=== PATIENT | female | born 1960 | race Caucasian/White ===

== ENCOUNTER 2020-02-17 10:44 | Outpatient (REF) | payer MEDICAID, SELFPAY | END 2020-02-17 10:45 | disposition home or self-care (01) | LOC: HO.LAB 10:44 | PROVIDERS: PCP Internal Medicine; Visit Provider Urology | DX: R30.0 Dysuria (principal) | CPT/HCPCS: 87086; 87088; 87186 ==

== ENCOUNTER 2020-08-03 12:06 | Outpatient (REF) | payer MEDICAID, SELFPAY ==
--- NOTE | ~2020-08-03 | MM_ITS ---
EXAMINATION: MM SCREENING DIGITAL BREAST TOMOSYNTHESIS, BILATERAL CLINICAL INFORMATION: Screening. Asymptomatic. The lifetime risk of breast cancer based on the Tyrer-Cuzick Model is 7.1%. COMPARISON: Mammography: May 18, 2019 and studies dating back to February 23, 2010 TECHNIQUE: Digital breast tomosynthesis is performed in both the craniocaudal and mediolateral oblique views along with computer-aided detection (CAD). Synthesized 2D images are generated from the tomosynthesis. FINDINGS: The breasts are heterogeneously dense, which may obscure small masses (ACR BI-RADS breast composition Category c). There are no significant masses, abnormal calcifications, or other abnormalities. MM/MM tomosynthesis screening BI IMPRESSION: There are no significant changes from prior study. ASSESSMENT: BI-RADS 1: Negative RECOMMENDATION: Routine annual mammography screening. This patient's information was entered into a reminder system with a target due date for their next mammogram.
== END 2020-08-03 12:07 | disposition home or self-care (01) ==
LOC: HO.MAMMO 12:06
PROVIDERS: Visit Provider Internal Medicine
DX: Z12.31 Encounter for screening mammogram for malignant neoplasm of breast (principal)
CPT/HCPCS: 77063; 77067

== ENCOUNTER 2021-08-04 12:20 | Outpatient (REF) | payer MEDICAID, SELFPAY ==
--- NOTE | ~2021-08-04 | MM_ITS ---
EXAMINATION: MM SCREENING DIGITAL BREAST TOMOSYNTHESIS, BILATERAL CLINICAL INFORMATION: Screening. Asymptomatic. The lifetime risk of breast cancer based on the Tyrer-Cuzick Model is 5%. COMPARISON: Mammography: 08/03/2020, 05/18/2019, 04/14/2018 TECHNIQUE: Digital breast tomosynthesis is performed in both the craniocaudal and mediolateral oblique views along with computer-aided detection (CAD). Synthesized 2D images are generated from the tomosynthesis. FINDINGS: The breasts are heterogeneously dense, which may obscure small masses (ACR BI-RADS breast composition Category c). There are no significant masses, abnormal calcifications, or other abnormalities. Parenchymal pattern is similar to prior studies. The axilla and skin contours are unremarkable. MM/MM tomosynthesis screening BI IMPRESSION: No mammographic evidence of malignancy. ASSESSMENT: BI-RADS 1: Negative RECOMMENDATION: Routine annual mammography screening. This patient's information was entered into a reminder system with a target due date for their next mammogram.
== END 2021-08-04 12:21 | disposition home or self-care (01) ==
LOC: HO.MAMMO 12:20
PROVIDERS: Visit Provider Internal Medicine
DX: Z12.31 Encounter for screening mammogram for malignant neoplasm of breast (principal)
CPT/HCPCS: 77063; 77067

== ENCOUNTER 2022-08-10 12:21 | Outpatient (REF) | payer OTHER, SELFPAY ==
--- NOTE | ~2022-08-10 | MM_ITS ---
EXAMINATION: MM SCREENING DIGITAL BREAST TOMOSYNTHESIS, BILATERAL CLINICAL INFORMATION: Screening. Asymptomatic. The lifetime risk of breast cancer based on the Tyrer-Cuzick Model is 5%. COMPARISON: Multiple prior mammography exams, most recent 08/04/2021. TECHNIQUE: Digital breast tomosynthesis is performed in both the craniocaudal and mediolateral oblique views along with computer-aided detection (CAD). Synthesized 2D images are generated from the tomosynthesis. FINDINGS: The breasts are heterogeneously dense, which may obscure small masses (ACR BI-RADS breast composition Category c). Right breast parenchymal pattern is similar to prior studies and there is no developing density or interval mass or architectural abnormality. Neither breast shows abnormal calcifications. The axilla and skin contours are unremarkable. There is oval parenchymal asymmetry mid outer left breast on CC view, more conspicuous on current study. Patient will be recalled for additional imaging. MM/MM tomosynthesis screening BI IMPRESSION: Left: -Asymmetric density mid outer left breast, possibly waxing and waning fibrocystic change or shifting fibroglandular tissue. Right: -No mammographic evidence of malignancy. ASSESSMENT: BI-RADS 0: Incomplete - Need Additional Imaging Evaluation RECOMMENDATION: 1. Additional views left breast (spot CC, rolled CC x 2). 2. Targeted ultrasound if warranted after review of the additional views. 3. Radiology department staff will contact the patient for additional imaging. This patient's information was entered into a reminder system with a target due date for their next mammogram.
== END 2022-08-10 12:22 | disposition home or self-care (01) ==
LOC: HO.MAMMO 12:21
PROVIDERS: Visit Provider Nurse Practitioner Gerontology
DX: Z12.31 Encounter for screening mammogram for malignant neoplasm of breast (principal)
CPT/HCPCS: 77063; 77067

== ENCOUNTER 2022-09-07 13:28 | Outpatient (REF) | payer OTHER, SELFPAY ==
--- NOTE | ~2022-09-07 | MM_ITS ---
EXAMINATION: MM DIAGNOSTIC DIGITAL BREAST TOMOSYNTHESIS, LEFT TARGETED LEFT BREAST ULTRASOUND CLINICAL INFORMATION: Left breast lateral asymmetric density. COMPARISON: Mammography: 08/10/2022 and studies dating back to 11/14/2015. TECHNIQUE: Digital breast tomosynthesis is performed. 2D images are generated from the tomosynthesis. The following views are obtained: Rolled craniocaudal views as well as spot compression craniocaudal view left breast. FINDINGS: The breasts are heterogeneously dense, which may obscure small masses (ACR BI-RADS breast composition Category c). There remains some dense breast tissue present with question of 2 circumscribed densities lateral aspect of the left breast. I do not see definite correlates on mediolateral oblique views. These densities may have been present on study of 04/14/2018 but I cannot definitely say that more recent studies show these. Targeted left breast ultrasound laterally did not demonstrate any abnormal cystic or solid masses. No region of abnormal distal sound shadowing was appreciated. Results are discussed with the patient at time of visit. MM/MM tomosynthesis added views L IMPRESSION: Dense breast parenchyma lateral aspect of the left breast for which 6 month follow-up mammogram is recommended. ASSESSMENT: BI-RADS 3: Probably Benign. RECOMMENDATION: Diagnostic mammography in 6 months. This patient's information was entered into a reminder system with a target due date for their next mammogram.
== END 2022-09-07 13:29 | disposition home or self-care (01) ==
LOC: HO.MAMMO 13:28
PROVIDERS: Visit Provider Nurse Practitioner Gerontology
DX: R92.8 Other abnormal and inconclusive findings on diagnostic imaging of breast (principal)
CPT/HCPCS: 76642; 77061; 77065

== ENCOUNTER 2022-09-14 08:28 | Outpatient (REF) | payer OTHER, SELFPAY ==
[2022-09-14 09:27] LABS: Alanine Aminotransferase 32 U/L (0-31); Albumin Level 4.3 g/dL (3.5-5.0); Alkaline Phosphatase 132 U/L (39-117); Anion Gap 14 (12-20); Aspartate Amino Transferase 30 U/L (5-31); Bilirubin Total 0.6 mg/dL (0.0-1.0); Blood Urea Nitrogen 14 mg/dL (9-16); Calcium 9.9 mg/dL (8.4-10.2); Carbon Dioxide 28 mmol/L (22-29); Chloride 104 mmol/L (96-108); Cholesterol 171 mg/dL; Estimated Glomerular Filt Rate > 60; Glucose Random 194 mg/dL (60-115); HDL Cholesterol 49 mg/dL; LDL Cholesterol Calculated 104 mg/dl; Potassium 4.7 mmol/L (3.3-5.1); Sodium 141 mmol/L (135-145); Total Protein 7.6 g/dL (6.5-8.0); Triglycerides 94 mg/dL
[2022-09-14 11:16] LABS: Appearance Urine Turbid; Color Urine Yellow; Glucose Urine UA Negative (Negative); Leukocyte Esterase Urine Moderate (2+) (Negative); Nitrite Urine Negative (Negative); PH 5.5 (5.0-9.0); UMIC TRIGGER UACC YES; Urine Blood Negative (Negative); Urine Ketones Negative (Negative); Urine Protein Negative (Neg-Trace)
[2022-09-14 11:22] LABS: Creatinine Urine 132.58 mg/dL; Microalbum/Creatinine Ratio Ur 27.9 ug/mg cr
[2022-09-14 11:23] LABS: Bacteria Urine Trace (None Seen); Hyaline Casts Urine 0-2 /LPF (0-2); RBC Urine 0-2 /HPF (0-2); UACC Culture Trigger YES
== END 2022-09-14 08:29 | disposition home or self-care (01) ==
LOC: HO.LAB 08:28
PROVIDERS: PCP Nurse Practitioner Gerontology; Visit Provider Nurse Practitioner Gerontology
DX: K76.0 Fatty (change of) liver, not elsewhere classified (principal); E11.9 Type 2 diabetes mellitus without complications
CPT/HCPCS: 36415; 80053; 80061; 81001; 81003; 82043; 87086

== ENCOUNTER 2023-03-01 13:51 | Outpatient (REF) | payer OTHER, SELFPAY ==
--- NOTE | ~2023-03-01 | MM_ITS ---
EXAMINATION: MM DIAGNOSTIC DIGITAL BREAST TOMOSYNTHESIS, LEFT CLINICAL INFORMATION: Follow-up one view asymmetry the lateral left breast seen on CC view only, with no MLO correlate. Also, no ultrasonographic correlate. COMPARISON: Mammography: 09/07/2022 mammogram and ultrasound. Mammography 08/10/2022, 08/04/2021, 08/03/2020, and dating back to 2018. TECHNIQUE: Digital left breast tomosynthesis is performed in both the craniocaudal and mediolateral oblique views along with computer-aided detection (CAD). Synthesized 2D images are generated from the tomosynthesis. FINDINGS: There are scattered areas of fibroglandular density (ACR BI-RADS breast composition Category b). The parenchymal pattern of the left breast as a stable asymmetry in the lateral aspect, which in retrospect is unchanged dating back to 2018. It is most certainly benign and is unchanged on today's examination. No correlate is evident on the MLO projection. Otherwise, there are are no suspicious masses, suspicious grouped calcifications, or areas of architectural distortion in either breast. The parenchymal pattern is stable from prior exams. MM/MM tomosynthesis diagnostic LT IMPRESSION: There are no significant changes from prior study. Recommend six-month interval follow-up diagnostic left mammography when the patient is due for bilateral screening. If stable at that time, no further follow-up recommended. ASSESSMENT: BI-RADS BI-RADS 3 - Probably benign finding(s) - 6 month follow-up suggested RECOMMENDATION: 6 Month F/U Results were provided to the patient at time of visit by the technologist. This patient's information was entered into a reminder system with a target due date for their next mammogram.
== END 2023-03-01 13:52 | disposition home or self-care (01) ==
LOC: HO.MAMMO 13:51
PROVIDERS: PCP Nurse Practitioner Gerontology; Visit Provider Nurse Practitioner Gerontology
DX: R92.8 Other abnormal and inconclusive findings on diagnostic imaging of breast (principal)
CPT/HCPCS: 77061; 77065

== ENCOUNTER → 2023-03-01 14:00 | Outpatient (BNV) | payer OTHER, SELFPAY | PROVIDERS: PCP Nurse Practitioner Gerontology; Visit Provider Radiology Diagnostic Radiology | DX: R92.322 Mammographic fibroglandular density, left breast (principal) | CPT/HCPCS: 77061; 77065 ==

== ENCOUNTER 2023-08-30 14:45 | Outpatient (REF) | payer OTHER, SELFPAY ==
--- NOTE | ~2023-08-30 | MM_ITS ---
EXAMINATION: MM DIAGNOSTIC DIGITAL BREAST TOMOSYNTHESIS, BILATERAL CLINICAL INFORMATION: Follow-up one view asymmetry the lateral left breast seen on CC view only, with no MLO correlate. Also, no ultrasonographic correlate. Bilateral screening. COMPARISON: Mammography: 09/07/2022 mammogram and ultrasound. Mammography 03/01/2023, 08/10/2022, 08/04/2021, 08/03/2020, and dating back to 2018. TECHNIQUE: Digital breast tomosynthesis is performed in both the craniocaudal and mediolateral oblique views along with computer-aided detection (CAD). Synthesized 2D images are generated from the tomosynthesis. In addition, full-field 3-D left mediolateral view was obtained. FINDINGS: The breasts are heterogeneously dense, which may obscure small masses (ACR BI-RADS breast composition Category c). The parenchymal pattern of the left breast has a stable asymmetry in the lateral aspect, which in retrospect is unchanged dating back to 2018. It is most certainly benign and is unchanged on today's examination. No correlate is evident on the MLO projection. No further follow-up recommended. Otherwise, there are are no suspicious masses, suspicious grouped calcifications, or areas of architectural distortion in either breast. The parenchymal pattern is stable from prior exams. MM/MM tomosynthesis diagnostic BI IMPRESSION: No findings in either breast suspicious for malignancy. Benign asymmetry left CC projection requires no further follow-up. Recommend the patient return to routine annual screening. ASSESSMENT: BI-RADS BI-RADS 2 - Benign Findings RECOMMENDATION: 1 year F/U Results were provided to the patient at time of visit by the technologist. This patient's information was entered into a reminder system with a target due date for their next mammogram.
== END 2023-08-30 14:46 | disposition home or self-care (01) ==
LOC: HO.MAMMO 14:45
PROVIDERS: PCP Nurse Practitioner Gerontology; Visit Provider Nurse Practitioner Gerontology
DX: N64.89 Other specified disorders of breast (principal)
CPT/HCPCS: 77062; 77066

== ENCOUNTER → 2023-08-30 15:00 | Outpatient (BNV) | payer OTHER, SELFPAY | PROVIDERS: PCP Nurse Practitioner Gerontology; Visit Provider Radiology Diagnostic Radiology | DX: R92.8 Other abnormal and inconclusive findings on diagnostic imaging of breast (principal) | CPT/HCPCS: 77062; 77066 ==

== ENCOUNTER 2024-09-11 14:42 | Outpatient (REF) | payer OTHER, SELFPAY ==
--- OUTSIDE RECORDS SUMMARY | 2024-09-11 14:45 | XMS_ITS | Clinical Summary ---
Author Organization [facility] [address] [facility] Address [address] [place] [address] Phone Care Team Providers Care Route Driver Salesperson Name Role Phone Pricilla Tayla OGDEN Primary Care Provider [phone] Allergies Active Allergy Reactions Criticality Noted Date Comments Tramadol Rash 07/24/2023 Medications blood-glucose sensor (FreeStyle Rubén 3 Plus Sensor) deviceIndication s:Type 2 diabetes mellitus with hyperglycemia, with long-term current use of insulin ([facility] V24, [facility] V28) 1 EA See administration instructions. Use one sensor every 15 days 6 each 3 03/16/20 24 Active glucose sensor,implant-d examet device 1 Each by Does not apply route See Admin Instructions. Use one sensor every 14 days 02/21/20 24 Active pen needle, diabetic (Microdot Insulin Pen Needle) 31 gauge x 1/4 needle Use with insulin pen daily.Use with insulin pen 4 times daily. 02/21/20 24 Active FREESTYLE LANCETS MISC USE TO TEST BLOOD SUGARS ONCE DAILY 12/07/19 23 Active blood sugar diagnostic (FreeStyle Lite Strips) test strip USE TO TEST BLOOD SUGAR ONCE DAILY 11/07/19 23 Active valsartan (DIOVAN) 160 mg tablet Take 160 mg by mouth daily. Active blood-glucose meter misc Use to test blood sugars once daily 05/05/19 22 Active ibuprofen (ADVIL,MOTRIN) 600 mg tablet Take 600 mg by mouth every 6 hours as needed. Active cholecalciferol (VITAMIN D-3) 50 mcg (2,000 unit) tablet Take 1 tablet (2,000 Units total) by mouth 1 (one) time each day. Active insulin glargine (Lantus Solostar U-100 Insulin) 100 unit/mL (3 mL) injection pen TAKE 20-30 UNITS AT BEDTIME. Increase by 2 units every 3 days with a max dose of 30 units if fasting sugars remain over 130 30 mL 2 05/29/19 25 Active metFORMIN XR (GLUCOPHAGE-XR) 500 mg 24 hr tabletIndication s:Type 2 diabetes mellitus with hyperglycemia ([facility] V24, [facility] V28) TAKE 1 TABLET BY MOUTH TWICE A DAY WITH FOOD 180 tablet 1 08/13/19 25 Active insulin lispro (HumaLOG KwikPen Insulin) 100 unit/mL injection pen Use before each meal, up to 3 times a day, sliding scale 100-149: 5 units 150-199: 6 units 200-249: 8 units 250-299: 10 units 300-349: 12 units 350-400: 14 units Greater than 400, call me. 08/25/19 25 Active insulin lispro (HumaLOG KwikPen Insulin) 100 unit/mL injection pen Use before each meal, up to 3 times a day, sliding scale 100-149: 3 units 150-199: 5 units 200-249: 6 units 250-299: 8 units 300-349: 10 units 350-400: 12 units Greater than 400, call me. 30 mL 2 05/29/19 25 025 Discontin ued(Reord er) Active Problems Problem Noted Date Diagnosed Date Diabetes 1.5, managed as type 2 ([facility] V24, [facility] V28) 03/24/2024 Elevated liver enzymes 03/24/2024 Fatty liver 03/24/2024 Renal calculi 06/05/2017 Abnormal liver function tests 10/03/2016 Overview (03/24/2024): SGOT 54, SGPT 62, 04/02/2016 Hyperlipidemia 10/03/2016 Hypertension 10/03/2016 Type II or unspecified type diabetes mellitus with neurological manifestations, uncontrolled(250.62) ([facility] V24, [facility] V28) 10/03/2016 Encounters Date Type Department Care Team Description 08/24/2024 9:40 AM EDT Office Visit Endocrinology - [facility] [address] [place] [phone] Alysha Salgado PA Type 2 diabetes mellitus with hyperglycemia, with long-term current use of insulin ([facility] V24, [facility] V28) (Primary Dx); Hyperlipidemia, unspecified hyperlipidemia type; Primary hypertension from Last 3 Months Surgical History Surgery Date Site/Laterality Comments HYSTERECTOMY 04/22/2012 PROCEDURE: HISTORICAL HYSTERECTOMY TUBAL LIGATION PROCEDURE: HISTORICAL TUBAL LIGATION CHOLECYSTECTOMY 04/22/2009 PROCEDURE: HISTORICAL CHOLECYSTECTOMY OTHER SURGICAL HISTORY PROCEDURE: ---- OTHER ----; COMMENT: multiple kidney stone procedures Medical History Medical History Date Comments Diabetes 1.5, managed as typ e 2 ([facility] V24, [facility] V28) DX:Diabetes 1.5, managed as type 2 (HCC) Fatty liver DX:Fatty liver Elevated liver enzymes DX:Elevat ed liver enzymes Family History Medical History Relation Name Comments Diabetes Brother Diabetes Mother kidney stones Relation Name Status Comments Brother Alive Father Mother Alive Social History Tobacco Use Types Packs/Day Years Used Date Smoking Tobacco: Never Smokeless Tobacco: Never Tobacco Cessation:Counseling Given: Not Answered Comments Unknown Sex and Gender Information Value Date Recorded Sex Assigned at Not on file Legal Sex Female 6:14 AM EST Gender Identity Not on file Sexual Orientation Not on file Obstetrics History Last Filed Vital Signs Vital Sign Reading Time Taken Comments Blood Pressure 130/78 08/24/2024 9:36 AM EDT Pulse 72 08/24/2024 9:36 AM EDT Temperature 36.6 ??C (97.8 ??F) 08/24/2024 9:36 AM ED T Respiratory Rate 17 08/24/2024 9:36 AM EDT Oxygen Saturation 97% 05/29/2024 4:48 PM EST Inhaled Oxygen Concentration - - Weight 61.2 kg (135 lb) 08/24/2024 9:36 AM EDT Height 152.4 cm (5') 08/24/2024 9:36 AM EDT Body Mass Index 26.37 08/24/2024 9:36 AM EDT Plan of Treatment Upcoming Encounters Date Type Department Care Team (Late st Contact Info) Description 03/11/2025 10:00 AM EST Office Visit Endocrinology - [facility] [address] [place] [phone] Alysha Salgado PA [address] [place] [address] Health Maintenance Due Date Last Done Comments Breast Cancer Screening 1962 Diabetes: Annual Foot Exam 1972 Diabetes: Annual Retina Eye Exam 1972 Hepatitis A Vaccines (1 of 2 - Risk 2-dose series) 1981 Pneumococcal Vaccine: 50+ Years (1 of 2 - PCV) 1981 Pneumococcal Vaccine: Pediatrics (0 to 5 Years) and At-Risk Patients (6 to 64 Years) (1 of 2 - PCV) 1981 Zoster Vaccines (1 of 2) 2012 Hepatitis B Vaccines (1 of 3 - Risk 3-dose series) 2022 RSV Immunization Adult Patients (1 - Risk 60-74 years 1-dose series) 2022 Colorectal Cancer Screening: Colonoscopy 03/31/2022 Depression Screening 03/31/2022 HIV Screening 03/31/2022 Social Influencers of Health Screening 03/31/2022 Diabetes: Annual Urine Albumin-Creatinine Ratio (uACR) 12/08/2023 12/07/2022 COVID-19 Vaccine (2023-2 5 season) 2023 03/03/2021, 06/06/2020, 05/16/2020 Diabetes: Blood Sugar Contro l Test (HGBA1C) 01/02/2025 07/02/2024, 01/31/2024, 01/31/2024 Diabetes: Annual GFR (Glomerular Filtration Rate) 07/02/2025 07/02/2024, 07/05/2023 Hypertension/CHF/CAD Annual BMP Blood Test 07/02/2025 07/02/2024, 07/05/2023 Cholesterol Screening (Lipid Panel) 07/04/2028 07/05/2023 DTaP,Tdap,and Td Vaccines (2 - Td or Tdap) 09/10/2032 09/10/2022 Hepatitis C Screening Completed 03/03/2021 Influenza Vaccine Completed 02/11/2024, 02/04/2023, 02/10/2020 HIB Vaccines Aged Out No longer eligi ble based on patient's age to complete this topic HPV Vaccines Aged Out No longer eligi ble based on patient's age to complete this topic IPV Vaccines Aged Out No longer eligi ble based on patient's age to complete this topic MMR Vaccines Aged Out No longer eligi ble based on patient's age to complete this topic Meningococcal ACWY Vaccine Aged Out N o longer eligible based on patient's age to complete this topic Meningococcal B Vaccine Aged Out No l onger eligible based on patient's age to complete this topic RSV Immunization Patients Under 20 months Aged Out No longer eligible b ased on patient's age to complete this topic Varicella Vaccines Aged Out No longer eligible based on patient's age to complete this topic Procedures Procedure Name Priority Date/Time Associated Diagnosis Comments COMPREHENSIVE METABOLIC PANEL Routine 07/02/2024 2:43 PM EDT Type 2 diabetes mellitus with hyperglycemia, with long-term current use of insulin ([facility] V24, [facility] V28) Hyperlipidemia, unspecified hyperlipidemia type Primary hypertension HEMOGLOBIN A1C Routine 07/02/2024 2:43 PM EDT Type 2 diabetes mellitus with hyperglycemia, with long-term current use of insulin ([facility] V24, [facility] V28) LIPID PANEL Routine 07/05/2023 URINE ALBUMIN CREATININE RATIO Routine 12/07/2022 HEPATITIS C SCREENING Routine 03/03/2021 from Last 3 Months or Most Recently Relevant to Health Maintenance Results * (ABNORMAL) Hemoglobin A1c (07/02/2024 2:43 PM EDT) Hemoglobin A1C 10.3(H) <6.5 % LAB CHEMISTRY METHOD 07/02/2024 8:49 PM EDT [facility] Mean Bld Glu Estim. 249 mg/dL LAB CHEMISTRY METHOD 07/02/2024 8:49 PM EDT [facility] Blood Venous blood specimen / Unknown Venipuncture / Unknown 07/02/2024 2:43 PM EDT 07/02/2024 2:43 PM EDT us Alysha DIEZ LAB BLOOD ORDERABLES Final Resul t [facility] [address] [place] [address], [place] [phone] * (ABNORMAL) Comprehensive metabolic panel (07/02/2024 2:43 PM EDT) Sodium 139 133 - 145 mmol/L LAB CHEMISTRY METHOD 07/02/2024 5:36 PM EDT [facility] Potassium 4.2 3.5 - 5.5 mmol/L LAB CHE[facility]STR[facility] Chloride 104 96 - 110 mmol/L LAB CHEMISTRY METHOD 07/02/2024 5:36 PM [facility] CO2 28 21 - 32 mmol/L LAB CHEMISTRY METHOD 07/02/2024 5:36 PM T [facility] Anion Gap 7 3 - 11 LAB CHEMISTRY METHOD 07/02/2024 5:36 PM [facility] Glucose 150(H) 70 - 100 mg/dL LAB CHEMISTRY METHOD 07/02/2024 5:36 PM [facility] BUN 16 5 - 25 mg/dL LAB CHEMISTRY METHOD 07/02/2024 5:36 PM T [facility] Creatinine 0.55 0.50 - 1.10 mg/dL LAB CHEMISTRY METHOD 07/02/2024 5:36 PM [facility] eGFR 104 >=60 mL/min/1. 73m2 LAB CHEMISTRY METHOD 07/02/2024 5:36 PM [facility] Comment:Calculation based on the??Chronic Kidney Disease Epidemiology Collaboration (CKD-EPI) equation refit??without adjustment for race. BUN/Creatinine Ratio 29.1 LAB CHEMISTRY METHOD 07/02/2024 5:36 PM EDT [facility] Calcium 9.6 8.5 - 10.5 mg/dL LAB CHEMISTRY METHOD 07/02/2024 5:36 PM EDT [facility] AST (SGOT) 28 10 - 42 unit/L LAB CHEMISTRY METHOD 07/02/2024 5:36 PM T [facility] ALT (SGPT) 40 10 - 60 unit/L LAB CHEMISTRY METHOD 07/02/2024 5:36 PM EDT [facility] Alkaline Phosphatase 167(H) 42 - 121 unit/L LAB CHEMISTRY METHOD 07/02/2024 5:36 PM EDT [facility] Total Protein 7.5 6.0 - 8.0 g/dL LAB CHEMISTRY METHOD 07/02/2024 5:36 PM [facility] Albumin 3.8 3.2 - 5.0 g/dL LAB CHEMISTRY METHOD 07/02/2024 5:36 PM EDT [facility] Total Bilirubin 0.3 0.0 - 1.4 mg/dL LAB CHEMISTRY METHOD 07/02/2024 5:36 PM EDT [facility] Blood Venous blood specimen / Unknown Venipuncture / Unknown 07/02/2024 2:43 PM EDT 07/02/2024 2:43 PM EDT Alysha DIEZ LAB BLOOD ORDERABLES Final Resul t [facility] [address] [place] [address], * Lipid panel (07/05/2023) LDL/HDL Ratio 3 0 - 4 Triglycerides 93 0 - 150 mg/dL Cholesterol 166 0 - 200 mg/dL HDL 56 >=40 mg/dL LDL Cholesterol 92 0 - 100 mg/dL Blood Venous blood specimen / Unknown us Historical Provider LAB BLOOD ORDERABLES Linda l Result * Urine Albumin Creatinine Ratio (12/07/2022) Urine Albumin Creatinine Ratio abstracted Historical Provider HEALTH MAINTENANCE Final Result * Hepatitis C Screening (03/03/2021) Hepatitis C Screening abstracted Historical Provider HEALTH MAINTENANCE Final Result from Last 3 Months or Most Recently Relevant to Health Maintenance Insurance [facility] [employer] Care Teams Route Driver Salesperson Relationship Specialty Start Date End Date Tayla Pleitez NP [address] [facility] [place] [address] PCP - General 07/25/23
== END 2024-09-11 14:43 | disposition home or self-care (01) ==
LOC: HO.MAMMO 14:42
PROVIDERS: PCP Nurse Practitioner Gerontology; Visit Provider Nurse Practitioner Gerontology
DX: Z12.31 Encounter for screening mammogram for malignant neoplasm of breast (principal)
CPT/HCPCS: 77063; 77067

== ENCOUNTER → 2024-09-11 15:00 | Outpatient (BNV) | payer OTHER, SELFPAY | PROVIDERS: PCP Nurse Practitioner Gerontology; Visit Provider Internal Medicine | DX: Z12.31 Encounter for screening mammogram for malignant neoplasm of breast (principal) | CPT/HCPCS: 77063; 77067 ==

== ENCOUNTER 2025-03-23 12:17 | Emergency (ER) | payer OTHER, SELFPAY ==
[2025-03-23 12:26] VITALS: BP 168/73; PULSE 91; RESP 20; TEMP 36; O2SAT 97; BMI 27.8
--- NOTE | 2025-03-23 12:27 | ED.GENADULT ---
HPI - General Adult General Chief complaint: Abdominal Pain Stated complaint: Kidney Stone Time Seen by Provider: 03/23/25 23:49 Related Data Allergies Allergy/AdvReac Type Severity Reaction Status Date / Time tramadol Allergy Itching Verified 03/23/25 12:30 [facility] Social History Social History Advance Directives: No Advance Directives Information Provided: No Do you have a plan to hurt others: No Plan Physical Exam ED Vital Signs: BMI result Body Mass Index 27.8 Course Course Course Narrative: This is a Rapid Medical Examination (RME) performed by June Waterman PA-C in triage. Full HPI, ROS, assessment and treatment plan per primary provider in the Main ED. Hx: 65 yo F hx renal stones requiring surgical removal here for eval of 7/10 L flank pain rad to L abdomen and intermittent hematuria x1 week, worsening 2 days ago. reports chills, nausea without vomiting. denies fever, dysuria. taking motrin at home w some relief - last dose around 1999 last night. Plan: labs, UA Reevaluation(s) Reevaluation #1: Patient left the emergency department before myself or any of the other clinicians could review or explain physical exam findings, test results, need or lack there of for additional testing, treatment options, or a treatment plan. Medical Decision Making Lab Data 03/23/25 12:40 03/23/25 12:40 Labs: Lab Results 03/23/25 Range/Units 12:40 WBC 10.5 (4.8-10.8) X10*3/uL RBC 4.67 (4.20-5.50) X10*6/uL Hgb 13.4 (12.0-16.0) g/dl Hct 41.4 (37.0-47.0) % MCV 88.7 (80.0-98.0) fL MCH 28.7 (27.0-33.0) pg MCHC 32.4 (31.0-35.0) g/dl RDW 11.7 (11.0-16.0) % Plt Count 284 (160-400) X10*3/uL MPV 11.1 (9.4-12.3) fL Immature Gran % (Auto) 0.5 H (0.0-0.4) % Neut % (Auto) 50.5 (45-73) % Lymph % (Auto) 36.4 (20-40) % [place] % (Auto) 5.9 (2-11) % Eos % (Auto) 5.7 H (0-4) % Baso % (Auto) 1.0 (0-2) % Lymph # (Auto) 3.8 (1.2-4.9) X10*3/uL [place] # (Auto) 0.6 (0.1-1.2) X10*3/uL Eos # (Auto) 0.6 H (0.0-0.4) X10*3/uL Baso # (Auto) 0.1 (0.0-0.2) X10*3/uL Abs Immat Gran (auto) 0.05 H (0.00-0.03) X10*3/uL Absolute Neuts (auto) 5.3 (2.0-8.3) x10*3/uL Absolute Nucleated RBC 0.000 (0.0-0.012) X10*3/uL Nucleated RBC % (auto) 0.0 (0.0-0.2) /100WBC Sodium 141 (135-145) mmol/L Potassium 3.7 (3.3-5.1) mmol/L Chloride 105 (96-108) mmol/L Carbon Dioxide 28 (22-29) mmol/L Anion Gap 12 (12-20) BUN 15 (9-16) mg/dL Creatinine 0.58 (0.5-1.4) mg/dL Estim Creat Clear Calc 83.2 Estimated GFR > 60 Random Glucose 187 H (60-115) mg/dL Calcium 9.7 (8.4-10.2) mg/dL Magnesium 1.8 (1.6-2.6) mg/dL Total Bilirubin 0.4 (0.0-1.0) mg/dL AST 36 H (5-31) U/L ALT 37 H (0-31) U/L Alkaline Phosphatase 158 H (39-117) U/L Total Protein 7.8 (6.5-8.0) g/dL Albumin 4.5 (3.5-5.0) g/dL Lipase 23 (8-78) U/L Urine Color Red A Urine Appearance Cloudy Urine pH 7.0 (5.0-9.0) Ur Specific [place] 1.010 (1.005-1.025) Urine Protein 30 (1+) H (Neg-Trace) mg/dL Urine Glucose (UA) 100 H (Negative) mg/dL Urine Ketones Negative (Negative) mg/dL Urine Blood Large (3+) H (Negative) Urine Nitrite Negative (Negative) Ur Leukocyte Esterase Small (1+) H (Negative) Urine RBC >20 H (0-2) /HPF Urine WBC 11-20 H (0-5) /HPF Ur Squamous Epith Cells 3-5 (0-2) /HPF Urine Bacteria Trace (None Seen) Hyaline Casts 3-5 (0-2) /LPF Discharge Plan Discharge Clinical Impression: Left flank pain Patient Disposition: Left W/O Completing Treatment Discharge Date/Time: 03/24/25 01:01
[2025-03-23 12:49] LABS: Hematocrit 41.4 % (37.0-47.0); Hemoglobin 13.4 g/dl (12.0-16.0); Imm Gran Abs Auto 0.05 X10*3/uL (0.00-0.03); Imm Gran Pct Auto 0.5 % (0.0-0.4); Lymphocytes Absolute Auto 3.8 X10*3/uL (1.2-4.9); MANUAL DIFF FLAG NO; Mean Corpuscular HGB Conc 32.4 g/dl (31.0-35.0); Mean Corpuscular Hemoglobin 28.7 pg (27.0-33.0); Mean Corpuscular Volume 88.7 fL (80.0-98.0); NRBC Abs Auto 0.000 X10*3/uL (0.0-0.012); NRBC Pct Auto 0.0 /100WBC (0.0-0.2); Platelet Count 284 X10*3/uL (160-400); Red Blood Count 4.67 X10*6/uL (4.20-5.50); White Blood Count 10.5 X10*3/uL (4.8-10.8)
[2025-03-23 12:54] LABS: Appearance Urine Cloudy; Glucose Urine UA 100 mg/dL (Negative); PH 7.0 (5.0-9.0); Specific Gravity - Urine 1.010 (1.005-1.025); UMIC TRIGGER UACC YES
[2025-03-23 12:57] LABS: UACC Culture Trigger YES
[2025-03-23 13:07] LABS: Alanine Aminotransferase 37 U/L (0-31); Albumin Level 4.5 g/dL (3.5-5.0); Alkaline Phosphatase 158 U/L (39-117); Anion Gap 12 (12-20); Aspartate Amino Transferase 36 U/L (5-31); Blood Urea Nitrogen 15 mg/dL (9-16); Calcium 9.7 mg/dL (8.4-10.2); Carbon Dioxide 28 mmol/L (22-29); Chloride 105 mmol/L (96-108); Creatinine Clr Calc Pharmacy 83.2; Estimated Glomerular Filt Rate > 60; Lipase 23 U/L (8-78); Magnesium 1.8 mg/dL (1.6-2.6); Potassium 3.7 mmol/L (3.3-5.1); Sodium 141 mmol/L (135-145); Total Protein 7.8 g/dL (6.5-8.0)
--- NOTE | 2025-03-23 23:42 | PC.NURSE ---
called to triage for re-eval, no answer
--- OUTSIDE RECORDS SUMMARY | 2025-03-24 00:58 | XMS_ITS | Encounter Summary ---
Author Organization [facility] Address [address] [place] [address] Care Team Providers Care Medicine Tech Name Role Phone Tayla Pleitez MELVI Primary Care Provider [phone] Reason for Visit * Reason Onset Date Comments prior authorization 03/15/2025 Marcus honeycutt Encounter Details Date Type Department Care Team (Late st Contact Info) Description 03/15/2025 Telephone Endocrinology - [place] [address] [place] [phone] Alysha Salgado PA [address] [place] [address] Social History Tobacco Use Types Packs/Day Years Used Date Smoking Tobacco: Never Smokeless Tobacco: Never Comments Unknown Sex and Gender Information Value Date Recorded Sex Assigned at Not on file Legal Sex Female 6:14 AM EST Gender Identity Not on file Sexual Orientation Not on file documented as of this encounter Progress Notes * Eleanor Simons MA - 03/15/2025 2:06 PM EST Electronic pa requested * Osiris Mancia - 03/15/2025 1:42 PM EST Endocrine Call Primary endocrine provider: Alysha Salgado PA-C Is the endocrine provider in the office toady?: yes Who is calling? A pharmacist: Pharmacy: [facility] Pharmacist Name: Pharmacy . If not the patient or parent/guardian please check for authorization to share/verbal release. Why is the person calling? Prior authorization. Medications or glucose meter supplies. Please routeto prior authorization pool (p [id number]). Which supply is the concern? Humalog kwikpen Prior Authorization for Medication-do not complete and send this encounter unless you have the fax from the pharmacy. Is this a Cover My Meds request: Yes -- Sahu Code [id number] Name of Medication humalog kwikpen Dose of Medication 100 unit/ml What is the RX # from the faxed refill? How does patient take this med? What Pharmacy did the fax come from: [facility] fax #: [phone] [employer] Party Information from fax: What Prescription Plan does the patient have? BIN/PCN if applicable: Cardholder ID: Person Code: Relationship Code: Help desk phone: documented in this encounter Plan of Treatment Upcoming Encounters Date Type Department Care Team (Late st Contact Info) Description 03/24/2025 7:45 AM EST Office Visit Endocrinology - [place] [address] [place] [phone] Alysha Salgado PA [address], [place] documented as of this encounter Visit Diagnoses Not on filedocumented in this encounter Care Teams Medicine Tech Relationship Specialty Start Date End Date Tayla Pleitez NP [address] [facility] [place] [address] PCP - General 07/25/23 documented as of this encounter
--- OUTSIDE RECORDS SUMMARY | 2025-03-24 00:58 | XMS_ITS | Clinical Summary ---
Author Organization [facility] [address] [facility] [address] Address [address] [place] [address] Phone Care Team Providers Care Veneer Jointer Operator Name Role Phone Pricilla Tayla OGDEN Primary Care Provider Allergies Active Allergy Reactions Criticality Noted Date Comments Tramadol Rash 07/24/2023 Medications blood-glucose sensor (FreeStyle Rubén 3 Plus Sensor) deviceIndication s:Type 2 diabetes mellitus with hyperglycemia, with long-term current use of insulin ([facility] V24, [facility] V28) 1 EA See administration instructions. Use one sensor every 15 days 6 each 3 024 Active glucose sensor,implant-d examet device 1 Each by Does not apply route See Admin Instructions. Use one sensor every 14 days 024 Active pen needle, diabetic (Microdot Insulin Pen Needle) 31 gauge x 1/4 needle Use with insulin pen daily.Use with insulin pen 4 times daily. 024 Active FREESTYLE LANCETS MISC USE TO TEST BLOOD SUGARS ONCE DAILY 023 Active blood sugar diagnostic (FreeStyle Lite Strips) test strip USE TO TEST BLOOD SUGAR ONCE DAILY 023 Active valsartan (DIOVAN) 160 mg tablet Take 160 mg by mouth daily. Active blood-glucose meter misc Use to test blood sugars once daily 022 Active ibuprofen (ADVIL,MOTRIN) 600 mg tablet Take 600 mg by mouth every 6 hours as needed. Active cholecalciferol (VITAMIN D-3) 50 mcg (2,000 unit) tablet Take 1 tablet (2,000 Units total) by mouth 1 (one) time each day. Active Lantus Solostar U-100 Insulin 100 unit/mL (3 mL) injection pen TAKE 20-30 UNITS AT BEDTIME. INCREASE BY 2 UNITS EVERY 3 DAYS WITH A MAX DOSE OF 30 UNITS IF FASTING SUGARS REMAIN OVER 130 30 mL 2 025 Active metFORMIN XR (GLUCOPHAGE-XR) 500 mg 24 hr tabletIndication s:Type 2 diabetes mellitus with hyperglycemia ([facility] V24, [facility] V28) TAKE 1 TABLET BY MOUTH TWICE A DAY WITH FOOD 180 tablet 3 025 Active insulin lispro (HumaLOG KwikPen Insulin) 100 unit/mL injection pen USE BEFORE EACH MEAL, UP TO 3 TIMES A DAY, SLIDING SCALE 100-149: 0 UNITS 150-199: 2 UNITS 200-249: 3 UNITS 250-299: 4 UNITS 300-349:5 UNITS 350-400: 6 UNITS GREATER THAN 400, CALL ME. 15 mL 2 025 Active metFORMIN XR (GLUCOPHAGE-XR) 500 mg 24 hr tabletIndication s:Type 2 diabetes mellitus with hyperglycemia ([facility] V24, [facility] V28) TAKE 1 TABLET BY MOUTH TWICE A DAY WITH FOOD 180 tablet 1 025 2024 Discontinued insulin lispro (HumaLOG KwikPen Insulin) 100 unit/mL injection pen Use before each meal, up to 3 times a day, sliding scale 100-149: 5 units 150-199: 6 units 200-249: 8 units 250-299: 10 units 300-349: 12 units 350-400: 14 units Greater than 400, call me. 025 2024 Discontinued Active Problems Problem Noted Date Diagnosed Date Diabetes 1.5, managed as type 2 ([facility] V24, [facility] V28) 03/24/2024 Elevated liver enzymes 03/24/2024 Fatty liver 03/24/2024 Renal calculi 06/05/2017 Abnormal liver function tests 10/03/2016 Overview (03/24/2024): SGOT 54, SGPT 62, 04/02/2016 Hyperlipidemia 10/03/2016 Hypertension 10/03/2016 Type II or unspecified type diabetes mellitus with neurological manifestations, uncontrolled(250.62) ([facility] V24, [facility] V28) 10/03/2016 Encounters Date Type Department Care Team Description 03/15/2025 1:00 PM EST Lab Draw Station - [place] [address] [place] [address] Type 2 diabetes mellitus with hyperglycemia, with long-term current use of insulin ([facility] V24, [facility] V28); Hyperlipidemia, unspecified hyperlipidemia type 03/15/2025 Telephone Endocrinology - [address] [phone] Alysha Salgado PA from Last 3 Months Surgical History Surgery Date Site/Laterality Comments HYSTERECTOMY 04/22/2012 PROCEDURE: HISTORICAL HYSTERECTOMY TUBAL LIGATION PROCEDURE: HISTORICAL TUBAL LIGATION CHOLECYSTECTOMY 04/22/2009 PROCEDURE: HISTORICAL CHOLECYSTECTOMY OTHER SURGICAL HISTORY PROCEDURE: ---- OTHER ----; COMMENT: multiple kidney stone procedures Medical History Medical History Date Comments Diabetes 1.5, managed as typ e 2 ([facility] V24, [facility] V28) DX:Diabetes 1.5, managed as type 2 [...] 72 08/24/2024 9:36 AM EDT Temperature 36.6 C (97.8 F) 08/24/2024 9:36 AM EDT Respiratory Rate 17 08/24/2024 9:36 AM EDT [...] 7:45 AM EST Office Visit Endocrinology - [place] [address] [place] [phone] Alysha Salgado PA [address] [place] [address] Health Maintenance Due Date Last Done Comments Breast Cancer Screening 1962 Colorectal Cancer Screening: Colonoscopy 1962 Diabetes: Annual Foot Exam 1972 Diabetes: Annual Retina Eye Exam 1972 Hepatitis A Vaccines (1 of 2 - Risk 2-dose series) 1981 Pneumococcal Vaccine: 50+ Years (1 of 2 - PCV) 1981 RSV Immunization Adult Patients (1 - Risk 50-74 years 1-dose series) 2012 Zoster Vaccines (1 of 2) 2012 Hepatitis B Vaccines (1 of 3 - Risk 3-dose series) 2022 HIV Screening 03/31/2022 Social Influencers of Health Screening 03/31/2022 Depression Screening 04/22/2024 COVID-19 Vaccine ( season) 2024 01/30/2022, 03/03/2021, 06/06/2020, Additional history exists Diabetes: Annual GFR (Glomerular Filtration Rate) 07/02/2025 07/02/2024, 07/05/2023 Hypertension/CHF/CAD Annual BMP Blood Test 07/02/2025 07/02/2024, 07/05/2023 Diabetes: Blood Sugar Control Test (HGBA1C) 09/12/2025 03/15/2025, 07/02/2024, 01/31/2024, Additional history exists Diabetes: Annual Urine Albumin-Creatinine Ratio (uACR) 03/15/2026 03/15/2025, 12/07/2022 Cholesterol Screening (Lipid Panel) 03/15/2030 03/15/2025, 07/05/2023 DTaP,Tdap,and Td Vaccines (2 - Td or Tdap) 09/10/2032 09/10/2022 Hepatitis C Screening Completed 03/03/2021 Influenza Vaccine Completed 02/19/2025, , 02/04/2023, Additional history exists HIB Vaccines Aged Out No longer eligi [...] 20 months Aged Out No longer eligible based on patient's age to complete this topic Varicella Vaccines Aged Out No longer eligible based on patient's age to complete this topic Procedures Procedure Name Priority Date/Time Associated Diagnosis Comments MICROALBUMIN CREATININE URINE RATIO Routine 03/15/2025 1:07 PM EST Type 2 diabetes mellitus with hyperglycemia, with long-term current use of insulin ([facility] V24, [facility] V28) LIPID PANEL WITH REFLEX TO DIRECT LDL Routine 03/15/2025 1:07 PM EST Type 2 diabetes mellitus with hyperglycemia, with long-term current use of insulin ([facility]/HCC V24, CMS/HCC V28) Hyperlipidemia, unspecified hyperlipidemia type HEMOGLOBIN A1C Routine 03/15/2025 1:07 PM EST Type 2 diabetes mellitus with hyperglycemia, with long-term current use of insulin (CMS/HCC V24, CMS/HCC V28) COMPREHENSIVE METABOLIC PANEL Routine 07/02/2024 2:43 PM EDT Type 2 diabetes mellitus with hyperglycemia, with long-term current use of insulin (CMS/HCC V24, CMS/HCC V28) Hyperlipidemia, unspecified hyperlipidemia type Primary hypertension HEPATITIS C SCREENING Routine 03/03/2021 from Last 3 Months or Most Recently Relevant to Health Maintenance Results * Lipid panel with reflex to direct LDL (03/15/2025 1:07 PM EST) Cholesterol 159 0 - 200 mg/dL 03/15/2025 5:05 PM [facility] Triglycerides 134 0 - 150 mg/dL 03/15/2025 5:05 PM [facility] HDL 47 >=40 mg/dL 03/15/2025 5:05 PM [facility] LDL Calculated 85 0 - 100 mg/dL 03/15/2025 5:05 PM [facility] Comment:Estimated LDL Calcul ated using equation: Total cholesterol - HDL cholesterol - (Triglycerides/5) VLDL Cholesterol [place] 26.8 mg/dL 03/15/2025 5:05 PM [facility] Non HDL Chol. (LDL+VLDL) 112 <145 mg/dL 03/15/2025 5:05 PM [facility] Chol/HDL Ratio 3.4 0.0 - 4.4 03/15/2025 5:05 PM [facility] Blood Venous blood specimen / Unknown Venipuncture / Unknown 03/15/2025 1:07 PM EST 03/15/2025 1:07 PM EST us Alysha DIEZ LAB BLOOD ORDERABLES Final Resul t [facility] [address] [place] [address], [place] [phone] * (ABNORMAL) Microalbumin creatinine urine ratio (03/15/2025 1:07 PM EST) Creatinine, Urine 44.0 mg/dL 03/15/2025 5:26 PM [facility] Microalb, Ur 117.0(H) 0.0 - 29.0 mg/L 03/15/2025 5:26 PM [facility] Microalb/Creat Ratio 266(H) <30 mg/g creat 03/15/2025 5:26 PM EST [facility] Urine Urine specimen obtained by clean catch procedure / Unknown Non-blood Collection / Unknown 03/15/2025 1:07 PM EST 03/15/2025 1:07 PM EST us Alysha DIEZ LAB URINE ORDERABLES Final Resul t Performing Organization Address [facility] Co de Phone Number [facility] [address] [place] [address], [place] [phone] * (ABNORMAL) Hemoglobin A1c (03/15/2025 1:07 PM EST) Hemoglobin A1C 8.5(H) <6.5 % LAB CHEMISTRY METHOD 03/15/2025 8:11 PM EST [facility] Mean Bld Glu Estim. 197 mg/dL LAB CHEMISTRY METHOD 03/15/2025 8:11 PM EST [facility] Blood Venous blood specimen / Unknown Venipuncture / Unknown 03/15/2025 1:07 PM EST 03/15/2025 1:07 PM EST us Alysha DIEZ LAB BLOOD ORDERABLES Final Resul t Performing Organization Address [facility]/ZIP Co de Phone Number [facility] [address] [place] [address], [place] [phone] * (ABNORMAL) Comprehensive metabolic panel (07/02/2024 2:43 PM EDT) Sodium 139 133 - 145 mmol/L LAB CHEMISTRY METHOD 07/02/2024 5:36 PM EDT [facility] Potassium 4.2 3.5 - 5.5 mmol/L LAB CHEMISTRY METHOD 07/02/2024 5:36 PM EDT [facility] Chloride 104 96 - 110 mmol/L LAB CHEMISTRY METHOD 07/02/2024 5:36 PM [facility] CO2 28 21 - 32 mmol/L LAB CHEMISTRY METHOD 07/02/2024 5:36 PM [facility] Anion Gap 7 3 - 11 LAB CHEMISTRY METHOD 07/02/2024 5:36 PM [facility] Glucose 150(H) 70 - 100 mg/dL LAB CHEMISTRY METHOD 07/02/2024 5:36 PM [facility] BUN 16 5 - 25 mg/dL LAB CHEMISTRY METHOD 07/02/2024 5:36 PM [facility] Creatinine 0.55 0.50 - 1.10 mg/dL LAB CHEMISTRY METHOD 07/02/2024 5:36 PM [facility] eGFR 104 >=60 mL/min/1. 73m2 LAB CHEMISTRY METHOD 07/02/2024 5:36 PM [facility] Comment:Calculation based on the Chronic Kidney Disease Epidemiology Collaboration (CKD-EPI) equation refit without adjustment for race. BUN/Creatinine Ratio 29.1 LAB CHEMISTRY METHOD 07/02/2024 5:36 PM [facility] Calcium 9.6 8.5 - 10.5 mg/dL LAB CHEMISTRY METHOD 07/02/2024 5:36 PM [facility] AST (SGOT) 28 10 - 42 unit/L LAB CHEMISTRY METHOD 07/02/2024 5:36 PM [facility] ALT (SGPT) 40 10 - 60 unit/L LAB CHEMISTRY METHOD 07/02/2024 5:36 PM [facility] Alkaline Phosphatase 167(H) 42 - 121 unit/L LAB CHEMISTRY METHOD 07/02/2024 5:36 PM [facility] Total Protein 7.5 6.0 - 8.0 g/dL LAB CHEMISTRY METHOD 07/02/2024 5:36 PM [facility] Albumin 3.8 3.2 - 5.0 g/dL LAB CHEMISTRY METHOD 07/02/2024 5:36 PM EDT [facility] Total Bilirubin 0.3 0.0 - 1.4 mg/dL LAB CHEMISTRY METHOD 07/02/2024 5:36 PM EDT [facility] Blood Venous blood specimen / Unknown Venipuncture / Unknown 07/02/2024 2:43 PM EDT 07/02/2024 2:43 PM EDT us Alysha DIEZ LAB BLOOD ORDERABLES Final Resul t [facility] [address] [place] [address], [place] [phone] * Hepatitis C Screening (03/03/2021) [facility] Hepatitis C Screening abstracted Historical Provider HEALTH MAINTENANCE Final Result from Last 3 Months or Most Recently Relevant to Health Maintenance Insurance [facility] Care Teams Veneer Jointer Operator Relationship Specialty Start Date End Date Tayla Pleitez NP [address] [place] [address] [place] [address] PCP - General 07/25/23
== END 2025-03-24 01:01 | disposition left against medical advice (07) ==
LOC: HO.ED 03-24 00:56
PROVIDERS: Physician Assistant Medical; Emergency Provider Emergency Medicine; PCP Nurse Practitioner
DX: R10.A2 Flank pain, left side (principal); Z53.29 Procedure and treatment not carried out because of patient's decision for other reasons
CPT/HCPCS: 36415; 80053; 81001; 83690; 83735; 85025; 87086; 99282; 99283

== ENCOUNTER 2025-03-30 17:49 | Inpatient (IN) | payer OTHER, SELFPAY ==
--- NOTE | ~2025-03-30 | CT_ITS ---
CLINICAL HISTORY: Flank pain. Known kidney stones CT abdomen and pelvis without contrast Comparison: None provided Findings: The lung bases are clear. severe left hydronephrosis and moderate hydroureter with a 1.3 cm obstructing stone at the pelvic brim. Remainder of the solid organs are within normal limits. Status post cholecystectomy. No bowel obstruction, pneumoperitoneum, or pneumatosis. Pelvic contents unremarkable. Normal appendix. The bones are intact. IMPRESSION: severe left hydronephrosis and moderate hydroureter with a 1.3 cm obstructing stone at the pelvic brim. This document has been electronically signed by: Sabrina Muñoz MD on 03/30/2025 21:23:47
--- NOTE | ~2025-03-30 | FL_ITS ---
EXAMINATION: FL GUIDANCE ONLY HISTORY: cystoscopy, ureteroscopy, retro, laser left COMPARISON: Correlation is made with a CT of the abdomen and pelvis without contrast dated 03/30/2025. TECHNIQUE: Fluoroscopy time: 20 seconds. Cumulative Dose: 3.50 mGy. DAP: 154.35 uGym2 Images: 3. FINDINGS: Fluoroscopic spot films of the left abdomen demonstrate filling defects in the distal left ureter consistent with the calculi noted on CT. There is subsequent placement of a nephroureteral stent. FL/FL guidance in OR IMPRESSION: Fluoroscopy during procedure. Please see procedure report for additional information. Electronically signed by: Fuad Tinoco MD 04/01/2025 07:01 AM MARY
[2025-03-30 18:56] VITALS: BP 140/68; PULSE 74; RESP 20; TEMP 36.6; O2SAT 98; BMI 27.5
--- NOTE | 2025-03-30 19:02 | ED.GENADULT ---
HPI - General Adult General Chief complaint: Abdominal Pain Stated complaint: Kidney Stone Time Seen by Provider: 03/31/25 04:50 Source: patient and old records reviewed Mode of arrival: ambulatory Limitations: no limitations History of Present Illness ED Provider: GREGORY VELIZ narrative: 65-year-old female with past medical history of hypertension, diabetes, prior ureteral stones with Procedures in the past she has seen Dr. Kelly. She comes in with 2 weeks of intermittent colicky left-sided flank pain. It is progressively worsened and she can no longer tolerate the pain fever she has not had a fever but she has had some nausea. She was seen at [place] on March 25 and told she had 2 stones in the left ureter and discharged home with oral analgesia. She states it is no longer helping. She is able to produce urine. She is concerned the stones are not passing. MD complaint: Renal colic Onset (ago): week(s) (2) Location: abdomen Radiation: back Severity: severe Quality: stabbing Pain Consistency: intermittent Relieving factors: none Exacerbating factors: none Associated symptoms: loss of appetite, malaise and nausea/vomiting Treatments prior to arrival: other Related Data Home Medications ?Medication ?Instructions ?Recorded ?Confirmed acetaminophen 500 mg tablet 1,000 mg PO Q6H PRN Pain 03/31/25 03/31/25 amlodipine 2.5 mg tablet 2.5 mg PO BEDTIME 03/31/25 03/31/25 cholecalciferol (vit D3) 1,000 1 tab PO DAILY 03/31/25 03/31/25 unit-vitamin K2 (MK4) 100 mcg tablet gabapentin 100 mg capsule 100 mg PO BEDTIME 03/31/25 03/31/25 insulin glargine 100 unit/mL (3 34 unit subcut BEDTIME 03/31/25 03/31/25 mL) subcutaneous pen (Lantus Solostar U-100 Insulin) insulin lispro 100 unit/mL See Protocol subcut TIDAC 03/31/25 03/31/25 subcutaneous pen metformin 500 mg tablet,extended 500 mg PO BID 03/31/25 03/31/25 release 24 hr valsartan 160 mg tablet 160 mg PO BEDTIME 03/31/25 03/31/25 Allergies Allergy/AdvReac Type Severity Reaction Status Date / Time tramadol Allergy Itching Verified 03/30/25 18:59 Review of Systems Review of Systems: Yes all other systems are reviewed and are negative [facility] Past Medical History Attestation statement: The following information was validated with the patient. Source: old records reviewed Medical History (Updated 03/31/25 @ 05:42 by BRIANNA Tapia) Obstructed, uropathy Diabetes HTN (hypertension) Surgical History (Updated 03/31/25 @ 09:45 by Le Givens NP) H/O: hysterectomy Social History Social History Patient Tobacco Use Status: Never used Tobacco Physical Exam ED Vital Signs: Vital Signs - 24 hr 03/30/25 18:56 03/30/25 20:25 03/31/25 00:28 Temperature 97.9 F 98.5 F 97.9 F Pulse Rate 74 84 78 Respiratory Rate 20 16 16 Blood Pressure 140/68 H 150/68 H 127/60 Pulse Oximetry 98 96 96 Oxygen Delivery Method Room Air Room Air Room Air BMI result Body Mass Index 27.5 Appearance: Alert. Oriented X3. No acute distress. Eyes: Pupils equal, round and reactive to light. ENT: Pharynx normal. Neck: Normal inspection. Neck supple. CVS: Normal heart rate and rhythm. Pulses normal. Respiratory: No respiratory distress. Breath sounds normal. Abdomen: Soft and has left-sided tenderness to palpation as well as left flank pain Skin: Skin warm and dry. Normal skin color. Extremities: No lower extremity edema. Neuro: Oriented X 3. No motor deficit. No sensory deficit. Course Course Course Narrative: RME: 64 year female presents to ED for left-sided flank pain as couple of days. Patient is diagnosed with kidney stones and normal on the and now having similar symptoms. Labs UA CT scan ordered Medications Administered Generic Name Dose Route Start Last Admin Trade Name Freq PRN Reason Stop Dose Admin Hydromorphone HCl 0.5 mg 03/31/25 05:14 03/31/25 11:02 Hydromorphone Hcl 0.5 Mg/0.5 Ml Syringe IVPUSH 0.5 mg Q4H PRN Administration Pain, Moderate(Pain Scale 4-6) Protocol Lactated Ringer's 1,000 mls @ 100 mls/hr 03/31/25 10:45 03/31/25 11:00 Lr IVCONT 100 mls/hr .Q10H ROSALINAD Administration Insulin Human Lispro 0 unit 03/31/25 06:00 03/31/25 05:45 Insulin Lispro 100 Unit/Ml 3 Ml Vial SUBCUT Not Given Q6H ROSALINDA Protocol Sodium Chloride 3 ml 03/31/25 08:00 03/31/25 07:35 0.9 % Sodium Chloride Flush 3 Ml Syringe IVFLUSH Not Given QSHIFT ROSALINDA Discontinued Medications Generic Name Dose Route Start Last Admin Trade Name Clint PRN Reason Stop Dose Admin Hydromorphone HCl 0.5 mg 03/31/25 04:50 03/31/25 05:12 Hydromorphone Hcl 0.5 Mg/0.5 Ml Syringe IVPUSH 03/31/25 04:51 0.5 mg ONCE ONE Administration Protocol Lactated Ringer's 1,000 mls @ 999 mls/hr 03/31/25 04:50 03/31/25 08:05 Lr IV 03/31/25 05:50 Infused .Q1H1M ONE Infusion Ceftriaxone Sodium 1 gm/ 50 mls @ 100 mls/hr 03/31/25 04:50 03/31/25 05:44 Sodium Chloride IV 03/31/25 05:19 Infused ONCE ONE Infusion Ondansetron HCl 4 mg 03/31/25 04:50 03/31/25 05:12 Ondansetron Hcl 4 Mg/2 Ml Vial IVPUSH 03/31/25 04:51 4 mg ONCE ONE Administration Medical Decision Making Medical Decision Making MDM Narrative: 65-year-old female with past medical history of hypertension, diabetes, renal colic requiring intervention in the past who presents with 2 weeks of colicky left-sided flank pain that has not worsened. At this time she is aware she already has ureteral stones but she feels that her symptoms are not improving. I am going to obtain labs, urine study, CT scan to eval site and possible obstruction given her degree of pain. I am going to start her on IV fluids, and IV Dilaudid for pain. Differential Diagnosis Differential Diagnoses: The differential diagnosis associated with the presentation includes Renal colic, UTI, WILMER Admission/Observation Consideration of admission/observation: Escalation of care including admission/observation considered We will admit given UTI and obstructive stone Consult Healthcare Provider Management of the patient was discussed with: Hospitalist (Dr. Gamez we will admit) and Warehouse Driver (Dr. Robin sierra) Lab Data MDM Lab Attestation statement: I reviewed the patient's lab results. Her urine is positive for infection I have started her on IV antibiotics based off her last E coli urine culture5:16 AM 03/31/2025 (GREGORY DO): 03/30/25 19:32 03/30/25 19:32 Labs: Lab Results 03/30/25 03/31/25 Range/Units 19:32 05:08 WBC 10.5 (4.8-10.8) X10*3/uL RBC 4.52 (4.20-5.50) X10*6/uL Hgb 13.0 (12.0-16.0) g/dl Hct 41.1 (37.0-47.0) % MCV 90.9 (80.0-98.0) fL MCH 28.8 (27.0-33.0) pg MCHC 31.6 (31.0-35.0) g/dl RDW 11.8 (11.0-16.0) % Plt Count 289 (160-400) X10*3/uL MPV 11.1 (9.4-12.3) fL Immature Gran % (Auto) 0.3 (0.0-0.4) % Neut % (Auto) 64.5 (45-73) % Lymph % (Auto) 24.4 (20-40) % [place] % (Auto) 6.2 (2-11) % Eos % (Auto) 3.7 (0-4) % Baso % (Auto) 0.9 (0-2) % Lymph # (Auto) 2.6 (1.2-4.9) X10*3/uL [place] # (Auto) 0.7 (0.1-1.2) X10*3/uL Eos # (Auto) 0.4 (0.0-0.4) X10*3/uL Baso # (Auto) 0.1 (0.0-0.2) X10*3/uL Abs Immat Gran (auto) 0.03 (0.00-0.03) X10*3/uL Absolute Neuts (auto) 6.7 (2.0-8.3) x10*3/uL Absolute Nucleated RBC 0.000 (0.0-0.012) X10*3/uL Nucleated RBC % (auto) 0.0 (0.0-0.2) /100WBC Sodium 141 (135-145) mmol/L Potassium 3.8 (3.3-5.1) mmol/L Chloride 105 (96-108) mmol/L Carbon Dioxide 27 (22-29) mmol/L Anion Gap 13 (12-20) BUN 13 (9-16) mg/dL Creatinine 0.66 (0.5-1.4) mg/dL Estim Creat Clear Calc 72.8 Estimated GFR > 60 Random Glucose 197 H (60-115) mg/dL Lactic Acid 0.9 (0.5-2.0) mmol/L Calcium 10.0 (8.4-10.2) mg/dL Total Bilirubin 0.3 (0.0-1.0) mg/dL AST 33 H (5-31) U/L ALT 32 H (0-31) U/L Alkaline Phosphatase 146 H (39-117) U/L Total Protein 8.0 (6.5-8.0) g/dL Albumin 4.6 (3.5-5.0) g/dL Lipase 22 (8-78) U/L Urine Color RED Urine Appearance Turbid Urine pH 6.5 (5.0-9.0) Ur Specific [place] 1.025 (1.005-1.025) Urine Protein 300 (3+) H (Neg-Trace) mg/dL Urine Glucose (UA) 100 H (Negative) mg/dL Urine Ketones 15 (Negative) mg/dL Urine Blood Large (3+) H (Negative) Urine Nitrite Positive H (Negative) Ur Leukocyte Esterase Trace H (Negative) Urine RBC >20 H (0-2) /HPF Urine WBC 21-50 H (0-5) /HPF Ur Squamous Epith Cells 6-10 (0-2) /HPF Urine Bacteria None Seen (None Seen) Hyaline Casts 0-2 (0-2) /LPF Independent Interpretation I performed an independent interpretation of an: CT Scan (Obstructive left-sided.) Radiology Impression Discussion of test interpretation with radiology: I have reviewed the radiologist's reading. External Record Review External record reviewed: Outpatient record Discharge Plan Discharge Clinical Impression: Obstructed, uropathy, Acute UTI Patient Disposition: Admitted As Inpatient Interventions: Admission Worksheet (ED) Last Done: 03/31/25 11:16 Discharge Date/Time: 03/31/25 11:26
[2025-03-30 19:37] LABS: MANUAL DIFF FLAG NO
[2025-03-30 19:49] LABS: Hematocrit 41.1 % (37.0-47.0); Hemoglobin 13.0 g/dl (12.0-16.0); Imm Gran Abs Auto 0.03 X10*3/uL (0.00-0.03); Imm Gran Pct Auto 0.3 % (0.0-0.4); Lymphocytes Absolute Auto 2.6 X10*3/uL (1.2-4.9); Mean Corpuscular HGB Conc 31.6 g/dl (31.0-35.0); Mean Corpuscular Hemoglobin 28.8 pg (27.0-33.0); Mean Corpuscular Volume 90.9 fL (80.0-98.0); NRBC Abs Auto 0.000 X10*3/uL (0.0-0.012); NRBC Pct Auto 0.0 /100WBC (0.0-0.2); Platelet Count 289 X10*3/uL (160-400); Red Blood Count 4.52 X10*6/uL (4.20-5.50); White Blood Count 10.5 X10*3/uL (4.8-10.8)
[2025-03-30 19:51] LABS: Alanine Aminotransferase 32 U/L (0-31); Albumin Level 4.6 g/dL (3.5-5.0); Alkaline Phosphatase 146 U/L (39-117); Anion Gap 13 (12-20); Aspartate Amino Transferase 33 U/L (5-31); Blood Urea Nitrogen 13 mg/dL (9-16); Calcium 10.0 mg/dL (8.4-10.2); Carbon Dioxide 27 mmol/L (22-29); Chloride 105 mmol/L (96-108); Creatinine Clr Calc Pharmacy 72.8; Estimated Glomerular Filt Rate > 60; Lipase 22 U/L (8-78); Potassium 3.8 mmol/L (3.3-5.1); Sodium 141 mmol/L (135-145); Total Protein 8.0 g/dL (6.5-8.0)
[2025-03-30 20:11] LABS: Appearance Urine Turbid; Glucose Urine UA 100 mg/dL (Negative); PH 6.5 (5.0-9.0); Specific Gravity - Urine 1.025 (1.005-1.025); UMIC TRIGGER UACC YES
[2025-03-30 20:25] VITALS: BP 150/68; PULSE 84; RESP 16; TEMP 36.9; O2SAT 96
[2025-03-30 21:52] LABS: UACC Culture Trigger YES
[2025-03-31] VITALS (14 sets, daily range): BP systolic 115–165; BP diastolic 55–80; PULSE 69–109; RESP 12–20; TEMP 36.2–37.5; O2SAT 94–100; BMI 27.0
--- NOTE | 2025-03-31 | ECG_ITS ---
Test Reason : PRE OP Blood Pressure : */* mmHG Vent. Rate : 79 BPM Atrial Rate : 79 BPM P-R Int : 158 ms QRS Dur : 84 ms QT Int : 386 ms P-R-T Axes : 37 5 43 degrees QTcB Int : 442 ms Normal sinus rhythm Minimal voltage criteria for LVH, may be normal variant ( R in aVL ) Borderline ECG When compared with ECG of 20-Sep-2008 22:45, No significant changes seen Referred By: Julia Tiwari Electronically Signed By: RANDY GONZALES MD
[2025-03-31] MEDS: Lactated Ringers 1,000 ML 999 ML IV (05:13)
--- NOTE | 2025-03-31 05:22 | PM.IMHP ---
History of Present Illness Date of Service: 03/31/25 Attending physician on admission: Nikolas Gamez Chief Complaint: let flank pain Patient is a 65-year-old female Green[place]ic speaking with past medical history IDDM previously on Trulicity that was stopped 1 year prior, obstructive uropathy 6 years ago, hypertension presents to the emergency department for significant left flank pain. Patient states she has had associated nausea and vomiting, chills, no fever and significant left flank pain. Patient was seen previously in this ED 03/23/2025 for similar symptoms but did not complete the visit. Patient then went to [facility] on March 25 for the same issue, was found to have the pelvic rim stone but was safe for discharge home and was given oxycodone for pain management. Patient was instructed to return if her symptoms did not improve. For about the last 2 weeks patient has had intermittent episodes of hematuria and flank pain. Patient has been told that her stones in the past were calcium based. Patient was going to try to go to [place] this evening but lives very close to [facility] and could not make it to [facility] due to the pain. Patient has worked with Dr. Kelly in the past and Dr. Kelly requested admission and would see patient 1st thing in the morning. Patient currently has no leukocytosis and no anemia. Renal function is stable. Blood glucose 197. Lactic acid 0.9. AST 33, ALT 32 and alk-phos 146. Lipase 22. CT of the abdomen and pelvis notes severe left hydronephrosis and moderate hydroureter with a 1.3 cm obstructing stone at the pelvic brim. Dilaudid has been somewhat effective in controlling patient's pain and patient no longer has any nausea or vomiting. Review of Systems Review of Systems: Patient reports intermittent left flank pain, intermittent chills no fever. Patient no longer has any nausea or vomiting at this time. Patient denies any other abdominal pain, chest pain, shortness breath at rest, headache or visual changes.. Yes all other systems are reviewed and are negative [facility] Medical History (Updated 03/31/25 @ 05:42 by BRIANNA Tapia) Obstructed, uropathy Diabetes HTN (hypertension) Cognitive capacity: Alert and orientated x3 Functional capacity: independent ambulation Patient : No Social History Patient Tobacco Use Status: Never used Tobacco Advance Directives: No Advance Directives Information Provided: Yes Do you have a plan to hurt others: No Plan Patient : No Ebola Risk: Travel/Contact With Anyone From Affected Area/s: No Has Patient Experienced Ebola Symptoms: No Meds Allergies Allergy/AdvReac Type Severity Reaction Status Date / Time tramadol Allergy Itching Verified 03/30/25 18:59 Active Medications: Current Medications Acetaminophen (Acetaminophen 325 Mg Tablet) 650 mg PO Q6H PRN PRN Reason: Pain, Mild 1-3,fever,headache Albuterol/Ipratropium (Albuterol/Iprat 2.5/0.5mg 3 Ml Ampul.Neb) 3 ml INHALE Q4H PRN PRN Reason: Shortness of Breath/Wheezing Calcium Carbonate (Calcium Carbonate 750 Mg Tab.Chew) 750 mg PO Q4H PRN PRN Reason: Heartburn Hydromorphone HCl (Hydromorphone Hcl 1 Mg/Ml Syringe) 0.5 mg IVPUSH Q4H PRN; Protocol PRN Reason: Pain, Moderate(Pain Scale 4-6) Hydromorphone HCl (Hydromorphone Hcl 1 Mg/Ml Syringe) 1 mg IVPUSH Q4H PRN; Protocol PRN Reason: Pain, Severe (Pain Scale 7-10) Lactated Ringer's (Lr) 1,000 mls @ 999 mls/hr IV .Q1H1M ONE Stop: 03/31/25 05:50 Last Admin: 03/31/25 05:13 Dose: 999 mls/hr Ceftriaxone Sodium 1 gm/ (Sodium Chloride) 50 mls @ 100 mls/hr IV Q24H ROSALINDA Magnesium Hydroxide (Milk Of Magnesia 30 Ml Oral.Susp) 30 ml PO DAILY PRN PRN Reason: Constipation Melatonin (Melatonin 3 Mg Tablet) 6 mg PO BEDTIME PRN PRN Reason: Insomnia Ondansetron HCl (Ondansetron Hcl 4 Mg/2 Ml Vial) 4 mg IVPUSH Q8H PRN PRN Reason: Nausea and Vomiting Polyethylene Glycol (Polyethylene Glycol 3350 17 Gm Powd.Pack) 17 gm PO DAILY PRN PRN Reason: Constipation Senna (Sennosides 8.6 Mg Tablet) 17.2 mg PO BEDTIME ROSALINDA Sodium Chloride (0.9 % Sodium Chloride Flush 3 Ml Syringe) 3 ml IVFLUSH QSHIFT [facility] Physical Exam Vital Signs and Narrative: Vital Signs: Last Vital Signs Temp 97.9 F 03/31/25 00:28 Pulse 78 03/31/25 00:28 Resp 16 03/31/25 00:28 BP 127/60 03/31/25 00:28 Pulse Ox 96 03/31/25 00:28 O2 Del Method Room Air 03/31/25 00:28 BMI result Body Mass Index 27.5 Alert and orientated X3, able to give good history. Neuro: CN II-X11 intact, no deficits, visual acuity intact EYES: PERRLA, EOM intact, sclerae nonicteric ENT: hearing intact, no issues with swallowing, uvula midline, lips moist, nares patent no epistaxis Cardiac: S1 S2 RRR, no murmur, no JVD, no edema in Lower ext Pulmonary: lungs clear to auscultation B Abdominal: BS active in all 4 quadrants, no guarding, tenderness, rebounding MSK: strength 5/5 upper and lower extremities : L CV tenderness no bladder distension Extremities: no edema in lower extremities, PT and DP pulses palpable +2 Psych: mood stable, judgement and insight good Skin: No new rashes or lesions Results Labs 03/30/25 19:32 03/30/25 19:32 Labs: Laboratory Results - last 24 hr 03/30/25 19:32 MCV 90.9 MCH 28.8 MCHC 31.6 RDW 11.8 Plt Count 289 MPV 11.1 Immature Gran % (Auto) 0.3 Neut % (Auto) 64.5 Lymph % (Auto) 24.4 [place] % (Auto) 6.2 Eos % (Auto) 3.7 Baso % (Auto) 0.9 Lymph # (Auto) 2.6 [place] # (Auto) 0.7 Eos # (Auto) 0.4 Baso # (Auto) 0.1 Abs Immat Gran (auto) 0.03 Absolute Neuts (auto) 6.7 Absolute Nucleated RBC 0.000 Nucleated RBC % (auto) 0.0 Anion Gap 13 Estim Creat Clear Calc 72.8 Estimated GFR > 60 Random Glucose 197 H Calcium 10.0 Total Bilirubin 0.3 AST 33 H ALT 32 H Alkaline Phosphatase 146 H Total Protein 8.0 Albumin 4.6 Lipase 22 Urine Color RED Urine Appearance Turbid Urine pH 6.5 Ur Specific [place] 1.025 Urine Protein 300 (3+) H Urine Glucose (UA) 100 H Urine Ketones 15 Urine Blood Large (3+) H Urine Nitrite Positive H Ur Leukocyte Esterase Trace H Urine RBC >20 H Urine WBC 21-50 H Ur Squamous Epith Cells 6-10 Urine Bacteria None Seen Hyaline Casts 0-2 ECG Prior ECG tracings: not available for review Imaging Comment: CT abdomen and pelvis IMPRESSION: severe left hydronephrosis and moderate hydroureter with a 1.3 cm obstructing stone at the pelvic brim. Assessment and Plan (1) Obstructed, uropathy: Status: Acute (2) Acute UTI: Status: Acute Plan Patient is a 65-year-old female [place] speaking with past medical history IDDM previously on Trulicity that was stopped 1 year prior, obstructive uropathy 6 years ago, hypertension presents to the emergency department for significant left flank pain. Patient states she has had associated nausea and vomiting, chills, no fever and significant pain. ED provider reviewed case with Dr. Kelly and Dr. Kelly requesting admission and he will see patient this morning. Obstructive uropathy/ severe hydronephrosis with moderate hydroureter/ stone 1.3 cm pelvic brim Urology consulted Patient NPO IV fluids continue Pain management with Dilaudid Antiemetic as needed Obtain EKG in case patient requires intervention Renal function stable, avoid hypotension and nephrotoxic medications Acute UTI Patient currently on ceftriaxone No leukocytosis, fever and patient does not meet criteria for sepsis on admission Follow urine culture Blood cultures were not ordered in the ED prior to antibiotics starting likely because patient did not meet sepsis criteria IDDM Patient currently NPO Sliding scale insulin ordered for q.6 hours while NPO Hold metformin Hypertension Blood pressure currently stable Hold antihypertensives for now DVT prophylaxis: Held in case patient needs procedure Med rec pending Full code status Patient will require at least a 2 midnight stay for obstructive uropathy, acute UTI, IV ABX with expert consultation with Urology and possible surgical intervention. Quality Stroke Does the patient have a stroke diagnosis?: No Reason for No Anti-thrombotic by Day Two: Contraindicated (in case pt needs procedure ) VTE Prior VTE?: No VTE Risk Level:: Medical - moderate - high VTE Device Contraindication: N/A - Device Ordered VTE Drug Contraindication: Treatment Not Indicated
--- NOTE | 2025-03-31 05:23 | PC.NURSE ---
Iv placed 20g in right Ac, medicated per jun. notified ROCAEL Sanderson
[2025-03-31 05:54] LABS: Glucose, Whole Blood 180 mg/dL (60-115)
--- NOTE | 2025-03-31 08:16 | PHA.MEDREC ---
Pharmacy Consult ? Medication Reconciliation Pharmacy has completed the medication reconciliation. Spoke with pt to confirm medications. Pt was a good historian and had a list.
--- NOTE | 2025-03-31 09:29 | HO.ANESPROP2 ---
Documented by User: Le Givens NP 03/31/25 09:46 HPI - Anesthesia Eval Consult details Narrative: 65 yr old female for left Cystoscopy, Ureteroroscopy, Retro, Laser Uncontrolled type 2 DM: per PCP note from 12/2024, A1C reportedly 10% No CP or SOB with daily housework; no regular physical activity. PMF Active Problems Active Problems: All Active Problems Acute UTI (Acute) Obstructed, uropathy (Acute) Dysuria (Acute) Past Medical History Medical History Obstructed, uropathy Diabetes HTN (hypertension) Functional capacity: independent ambulation Family History Family history of problems with anesthesia: No Surgical History Surgical History H/O: hysterectomy History of Problems with Anesthesia: No Social History Social History Household Members: Spouse and Children Housing: House Do you presently have visiting nurse or other home services: No Patient Tobacco Use Status: Never used Tobacco Meds Allergies Allergy/AdvReac Type Severity Reaction Status Date / Time tramadol Allergy Itching Verified 03/30/25 18:59 Active Medications: Current Medications Acetaminophen (Acetaminophen 325 Mg Tablet) 650 mg PO Q6H PRN PRN Reason: Pain, Mild 1-3,fever,headache Albuterol/Ipratropium (Albuterol/Iprat 2.5/0.5mg 3 Ml Ampul.Neb) 3 ml INHALE Q4H PRN PRN Reason: Shortness of Breath/Wheezing Calcium Carbonate (Calcium Carbonate 750 Mg Tab.Chew) 750 mg PO Q4H PRN PRN Reason: Heartburn Dextrose (Dextrose 50 % 25 Gm/50 Ml Syringe) 25 gm IVPUSH Q15M PRN; Protocol PRN Reason: per Hypoglycemia Standing Ord. Glucose (Glucose Gel 15 Gm Gel..Gram.) 15 gm PO Q15M PRN; Protocol PRN Reason: per Hypoglycemia Standing Ord. Hydromorphone HCl (Hydromorphone Hcl 0.5 Mg/0.5 Ml Syringe) 0.5 mg IVPUSH Q4H PRN; Protocol PRN Reason: Pain, Moderate(Pain Scale 4-6) Hydromorphone HCl (Hydromorphone Hcl 1 Mg/Ml Syringe) 1 mg IVPUSH Q4H PRN; Protocol PRN Reason: Pain, Severe (Pain Scale 7-10) Ceftriaxone Sodium 1 gm/ (Sodium Chloride) 50 mls @ 100 mls/hr IV Q24H ROSALINDA Insulin Human Lispro (Insulin Lispro 100 Unit/Ml 3 Ml Vial) 0 unit SUBCUT Q6H ROSALINDA; Protocol Last Admin: 03/31/25 05:45 Dose: Not Given Magnesium Hydroxide (Milk Of Magnesia 30 Ml Oral.Susp) 30 ml PO DAILY PRN PRN Reason: Constipation Melatonin (Melatonin 3 Mg Tablet) 6 mg PO BEDTIME PRN PRN Reason: Insomnia Ondansetron HCl (Ondansetron Hcl 4 Mg/2 Ml Vial) 4 mg IVPUSH Q8H PRN PRN Reason: Nausea and Vomiting Polyethylene Glycol (Polyethylene Glycol 3350 17 Gm Powd.Pack) 17 gm PO DAILY PRN PRN Reason: Constipation Senna (Sennosides 8.6 Mg Tablet) 17.2 mg PO BEDTIME ROSALINDA Sodium Chloride (0.9 % Sodium Chloride Flush 3 Ml Syringe) 3 ml IVFLUSH QSHIFT ROSALINDA Last Admin: 03/31/25 07:35 Dose: Not Given Home Medications ?Medication ?Instructions ?Recorded ?Confirmed ?Last Taken ?Type acetaminophen 500 mg tablet 1,000 mg PO Q6H PRN Pain 03/31/25 03/31/25 Unknown History amlodipine 2.5 mg tablet 2.5 mg PO BEDTIME 03/31/25 03/31/25 03/30/25 History cholecalciferol (vit D3) 1,000 1 tab PO DAILY 03/31/25 03/31/25 03/30/25 History unit-vitamin K2 (MK4) 100 mcg tablet gabapentin 100 mg capsule 100 mg PO BEDTIME 03/31/25 03/31/25 03/30/25 History insulin glargine 100 unit/mL (3 34 unit subcut BEDTIME 03/31/25 03/31/25 03/30/25 History mL) subcutaneous pen (Lantus Solostar U-100 Insulin) insulin lispro 100 unit/mL See Protocol subcut TIDAC 03/31/25 03/31/25 03/30/25 History subcutaneous pen metformin 500 mg tablet,extended 500 mg PO BID 03/31/25 03/31/25 03/30/25 History release 24 hr valsartan 160 mg tablet 160 mg PO BEDTIME 03/31/25 03/31/25 03/30/25 History Exam Height,Weight and Vital Signs: Height 5 ft Weight 63.957 kg Last Vital Signs Temp 98.3 F 03/31/25 05:35 Pulse 80 03/31/25 05:35 Resp 20 03/31/25 05:35 BP 147/68 H 03/31/25 05:35 Pulse Ox 96 03/31/25 05:35 O2 Del Method Room Air 03/31/25 05:35 Pertinent Lab Results Pertinent Lab Results: Laboratory Tests 03/30/25 03/31/25 03/31/25 19:32 05:08 05:50 WBC 10.5 RBC 4.52 Hgb 13.0 Hct 41.1 MCV 90.9 MCH 28.8 MCHC 31.6 RDW 11.8 Plt Count 289 MPV 11.1 Immature Gran % (Auto) 0.3 Neut % (Auto) 64.5 Lymph % (Auto) 24.4 [place] % (Auto) 6.2 Eos % (Auto) 3.7 Baso % (Auto) 0.9 Lymph # (Auto) 2.6 [place] # (Auto) 0.7 Eos # (Auto) 0.4 Baso # (Auto) 0.1 Abs Immat Gran (auto) 0.03 Absolute Neuts (auto) 6.7 Absolute Nucleated RBC 0.000 Nucleated RBC % (auto) 0.0 Sodium 141 Potassium 3.8 Chloride 105 Carbon Dioxide 27 Anion Gap 13 BUN 13 Creatinine 0.66 Estim Creat Clear Calc 72.8 Estimated GFR > 60 POC Glucose 180 H Random Glucose 197 H Lactic Acid 0.9 Calcium 10.0 Total Bilirubin 0.3 AST 33 H ALT 32 H Alkaline Phosphatase 146 H Total Protein 8.0 Albumin 4.6 Lipase 22 Urine Color RED Urine Appearance Turbid Urine pH 6.5 Ur Specific [place] 1.025 Urine Protein 300 (3+) H Urine Glucose (UA) 100 H Urine Ketones 15 Urine Blood Large (3+) H Urine Nitrite Positive H Ur Leukocyte Esterase Trace H Urine RBC >20 H Urine WBC 21-50 H Ur Squamous Epith Cells 6-10 Urine Bacteria None Seen Hyaline Casts 0-2 Airway Mallampati Class: III TM Dist: >3cm Neck ROM: Full Partial: Upper Loose/Missing/Broken Teeth: No Assessment and Plan Final Anesthetic Review Family History of Problems with Anesthesia: No History of Problems with Anesthesia: No Documented by User: Kimberly Dale MD 03/31/25 16:07 [facility] Past Medical History Medical History Obstructed, uropathy Diabetes HTN (hypertension) Surgical History Surgical History H/O: hysterectomy Social History Social History Household Members: Spouse and Children Housing: House Do you presently have visiting nurse or other home services: No Patient Tobacco Use Status: Never used Tobacco Meds Allergies Allergy/AdvReac Type Severity Reaction Status Date / Time tramadol Allergy Itching Verified 03/30/25 18:59 Home Medications ?Medication ?Instructions ?Recorded ?Confirmed ?Last Taken ?Type acetaminophen 500 mg tablet 1,000 mg PO Q6H PRN Pain 03/31/25 03/31/25 Unknown History amlodipine 2.5 mg tablet 2.5 mg PO BEDTIME 03/31/25 03/31/25 03/30/25 History cholecalciferol (vit D3) 1,000 1 tab PO DAILY 03/31/25 03/31/25 03/30/25 History unit-vitamin K2 (MK4) 100 mcg tablet gabapentin 100 mg capsule 100 mg PO BEDTIME 03/31/25 03/31/25 03/30/25 History insulin glargine 100 unit/mL (3 34 unit subcut BEDTIME 03/31/25 03/31/25 03/30/25 History mL) subcutaneous pen (Lantus Solostar U-100 Insulin) insulin lispro 100 unit/mL See Protocol subcut TIDAC 03/31/25 03/31/25 03/30/25 History subcutaneous pen metformin 500 mg tablet,extended 500 mg PO BID 03/31/25 03/31/25 03/30/25 History release 24 hr valsartan 160 mg tablet 160 mg PO BEDTIME 03/31/25 03/31/25 03/30/25 History Exam Airway Heart: rrr Lungs: cta Assessment and Plan Assessment Anesthesia Assessment: Anesthesia Plan Discussed and Chart Reviewed Final Anesthetic Review NPO: Yes ASA Class: III Final Preanesthetic Review: No Changes in Pt Med Stat, Meds/Allgs Chart Reviewed and Consent Obtained/Reviewed Patient Risk: Intermediate Procedure Risk: Low Anesthetic Plan Anesthetic Plan: GA Disposition: Standard PACU
--- NOTE | 2025-03-31 10:13 | PM.UROCN ---
History of Present Illness Consult details Consult date: 03/31/25 Narrative: CC: Left distal ureteric stone with hydro uretero nephrosis and flank pain 65-year-old female Prior kidney stones 6 years ago Seen previously proximally 7 days ago for significant left flank pain with nausea and vomiting Attended [facility] 2 days later and found to have pelvic rim stone but was declared safe for discharge at that point and given pain management Has had intermittent hematuria with flank pain Laboratories - elevated blood glucose, lactate 0.9, calcium 10.0, creatinine 0.66 Positive nitrites, positive blood Imaging - CT of the abdomen and pelvis notes severe left hydronephrosis and moderate hydroureter with a 1.3 cm obstructing stone at the pelvic brim Recommendation - admission with antibiotics and assessment with hospitalist regarding diabetes management is insulin-dependent - plan for intervention this afternoon Review of Systems Constitutional: Constitutional: Reports as per HPI and Reports no additional constitutional complaints Cardiovascular: Cardiovascular: Reports as per HPI and Reports no additional cardiovascular complaints Respiratory: Respiratory: Reports as per HPI and Reports no additional respiratory complaints Gastrointestinal: Gastrointestinal: Reports as per HPI and Reports no additional gastrointestinal complaints Genitourinary: Genitourinary: Reports as per HPI Musculoskeletal: Musculoskeletal: Reports no additional musculoskeletal complaints and Reports as per HPI Neurologic: Reports system reviewed and no additional complaints, except as documented and Reports as per HPI [facility] Past Medical History Medical History (Updated 03/31/25 @ 05:42 by BRIANNA Tapia) Obstructed, uropathy Diabetes HTN (hypertension) Surgical History Surgical History (Updated 03/31/25 @ 09:45 by Le Givens NP) H/O: hysterectomy Social History Social History Patient Tobacco Use Status: Never used Tobacco Advance Directives: No Advance Directives Information Provided: Yes Do you have a plan to hurt others: No Plan Patient : No Travel History Ebola Risk: Travel/Contact With Anyone From Affected Area/s: No Has Patient Experienced Ebola Symptoms: No Meds Allergies Allergy/AdvReac Type Severity Reaction Status Date / Time tramadol Allergy Itching Verified 03/30/25 18:59 Active Medications: Current Medications Acetaminophen (Acetaminophen 325 Mg Tablet) 650 mg PO Q6H PRN PRN Reason: Pain, Mild 1-3,fever,headache Albuterol/Ipratropium (Albuterol/Iprat 2.5/0.5mg 3 Ml Ampul.Neb) 3 ml INHALE Q4H PRN PRN Reason: Shortness of Breath/Wheezing Calcium Carbonate (Calcium Carbonate 750 Mg Tab.Chew) 750 mg PO Q4H PRN PRN Reason: Heartburn Dextrose (Dextrose 50 % 25 Gm/50 Ml Syringe) 25 gm IVPUSH Q15M PRN; Protocol PRN Reason: per Hypoglycemia Standing Ord. Glucose (Glucose Gel 15 Gm Gel..Gram.) 15 gm PO Q15M PRN; Protocol PRN Reason: per Hypoglycemia Standing Ord. Hydromorphone HCl (Hydromorphone Hcl 0.5 Mg/0.5 Ml Syringe) 0.5 mg IVPUSH Q4H PRN; Protocol PRN Reason: Pain, Moderate(Pain Scale 4-6) Hydromorphone HCl (Hydromorphone Hcl 1 Mg/Ml Syringe) 1 mg IVPUSH Q4H PRN; Protocol PRN Reason: Pain, Severe (Pain Scale 7-10) Ceftriaxone Sodium 1 gm/ (Sodium Chloride) 50 mls @ 100 mls/hr IV Q24H ROSALINDA Insulin Human Lispro (Insulin Lispro 100 Unit/Ml 3 Ml Vial) 0 unit SUBCUT Q6H ROSALINDA; Protocol Last Admin: 03/31/25 05:45 Dose: Not Given Magnesium Hydroxide (Milk Of Magnesia 30 Ml Oral.Susp) 30 ml PO DAILY PRN PRN Reason: Constipation Melatonin (Melatonin 3 Mg Tablet) 6 mg PO BEDTIME PRN PRN Reason: Insomnia Ondansetron HCl (Ondansetron Hcl 4 Mg/2 Ml Vial) 4 mg IVPUSH Q8H PRN PRN Reason: Nausea and Vomiting Polyethylene Glycol (Polyethylene Glycol 3350 17 Gm Powd.Pack) 17 gm PO DAILY PRN PRN Reason: Constipation Senna (Sennosides 8.6 Mg Tablet) 17.2 mg PO BEDTIME ROSALINDA Sodium Chloride (0.9 % Sodium Chloride Flush 3 Ml Syringe) 3 ml IVFLUSH QSHIFT [facility] Last Admin: 03/31/25 07:35 Dose: Not Given Home Medications ?Medication ?Instructions ?Recorded ?Confirmed ?Last Taken ?Type acetaminophen 500 mg tablet 1,000 mg PO Q6H PRN Pain 03/31/25 03/31/25 Unknown History amlodipine 2.5 mg tablet 2.5 mg PO BEDTIME 03/31/25 03/31/25 03/30/25 History cholecalciferol (vit D3) 1,000 1 tab PO DAILY 03/31/25 03/31/25 03/30/25 History unit-vitamin K2 (MK4) 100 mcg tablet gabapentin 100 mg capsule 100 mg PO BEDTIME 03/31/25 03/31/25 03/30/25 History insulin glargine 100 unit/mL (3 34 unit subcut BEDTIME 03/31/25 03/31/25 03/30/25 History mL) subcutaneous pen (Lantus Solostar U-100 Insulin) insulin lispro 100 unit/mL See Protocol subcut TIDAC 03/31/25 03/31/25 03/30/25 History subcutaneous pen metformin 500 mg tablet,extended 500 mg PO BID 03/31/25 03/31/25 03/30/25 History release 24 hr valsartan 160 mg tablet 160 mg PO BEDTIME 03/31/25 03/31/25 03/30/25 History Physical Exam Vital Signs: Vital Signs: Last Vital Signs Temp 97.8 F 03/31/25 10:11 Pulse 69 03/31/25 10:11 Resp 16 03/31/25 10:11 BP 123/61 03/31/25 10:11 Pulse Ox 99 03/31/25 10:11 O2 Del Method Room Air 03/31/25 10:11 BMI result Body Mass Index 27.5 Const: General: cooperative, healthy appearing, comfortable and no acute distress Orientation/consciousness: patient oriented x3 HEENT: Face and sinus: Yes normal facial exam Mouth: moist mucous membranes Neck: Neck: Yes normal visual inspection, Yes full ROM and Yes trachea midline Chest: Chest palpation & inspection: normal inspection of the chest Resp: Effort & Inspection: normal respiratory effort, able to speak in complete sentences and no respiratory distress GI: Inspection: Yes normal to inspection Back/Spine/Pelvis: Cervical Spine: normal cervical lordosis Thoracic/Lumbar Spine: thoracic and lumbar spine normal to inspection Skin: General skin exam: no rashes or lesions noted Neuro: General: patient oriented x3, tone normal and moves all extremities Extrem: General: Yes normal to inspection and Yes capillary refill normal Results Labs 03/30/25 19:32 03/30/25 19:32 Labs: Abnormal lab results 03/30/25 03/31/25 Range/Units 19:32 05:50 POC Glucose 180 H (60-115) mg/dL Random Glucose 197 H (60-115) mg/dL AST 33 H (5-31) U/L ALT 32 H (0-31) U/L Alkaline Phosphatase 146 H (39-117) U/L Urine Protein 300 (3+) H (Neg-Trace) mg/dL Urine Glucose (UA) 100 H (Negative) mg/dL Urine Blood Large (3+) H (Negative) Urine Nitrite Positive H (Negative) Ur Leukocyte Esterase Trace H (Negative) Urine RBC >20 H (0-2) /HPF Urine WBC 21-50 H (0-5) /HPF Short CBC 03/30/25 Range/Units 19:32 WBC 10.5 (4.8-10.8) X10*3/uL Hgb 13.0 (12.0-16.0) g/dl Hct 41.1 (37.0-47.0) % Plt Count 289 (160-400) X10*3/uL BMP 03/30/25 19:32 Sodium 141 Potassium 3.8 Chloride 105 Carbon Dioxide 27 BUN 13 Creatinine 0.66 Calcium 10.0 Liver Function 03/30/25 Range/Units 19:32 Total Bilirubin 0.3 (0.0-1.0) mg/dL AST 33 H (5-31) U/L ALT 32 H (0-31) U/L Alkaline Phosphatase 146 H (39-117) U/L Albumin 4.6 (3.5-5.0) g/dL Urine 03/30/25 Range/Units 19:32 Urine Color RED Urine Appearance Turbid Urine pH 6.5 (5.0-9.0) Ur Specific [place] 1.025 (1.005-1.025) Urine Protein 300 (3+) H (Neg-Trace) mg/dL Urine Glucose (UA) 100 H (Negative) mg/dL All other labs normal. Assessment and Plan (1) Obstructed, uropathy: Status: Acute (2) Acute UTI: Status: Acute Plan Ureteroscopy We discussed the nature of the decision and reasonable alternatives for performing ureteroscopy. Options such as medical therapy were discussed. Interventions include chemical dissolution, ESWL, ureteroscopy with laser lithotripsy and stent placement, PCNL. The relative uncertainties and benefits related to each alternate procedure were adequately discussed. General surgical risks including, but not limited to - pain, bleeding, infection, myocardial infarction, pulmonary embolus, deep vein thrombosis and cerebrovascular accident which may result in further hospitalization were discussed. Full disclosure of the procedure as well as all major risks, benefits and complications were discussed including but not limited to damage to the urethra, bladder and kidney infection, damage to the ureter, stent migration or malposition, scarring to the renal pelvis, remnant stone fragments, subsequent stone passage with need for secondary procedures. The overall secondary procedure rate is approximately 10-15%. The overall clearance rate is approximately 90-95%. Success of the procedure in the short-term does not necessarily guarantee that long-term success will be maintained. Suitable follow up will need to be maintained. The patient showed understanding of discussion and wishes to proceed with - cystoscopy, retrograde, ureteroscopy, possible lithotripsy/stone basketing and stent on the distal left side Procedures Date of Service Date of Service: 03/31/25
--- NOTE | 2025-03-31 10:16 | PC.NURSE ---
Report given to [facility] Martinez. Plan to go after 4pm today
--- NOTE | 2025-03-31 10:36 | HO.PM.IMPN ---
Subjective Subjective Date of Service: 03/31/25 Interval History: Patient is seen and examined, reports that her pain is controlled with dilaudid. She denies any new concerns, her vitals are stable. Patient is scheduled for cystoscopy, ureteroscopy, possible laser lithotripsy and left stent with Dr. Kelly. She continues to be NPO pending procedure this afternoon. Resting comfortably on stretcher, her vitals are stable. Labs pending. Review of Systems Denies any shortness of breath, chest pain, headaches, dysuria, abdominal pain or discomfort, nausea, vomiting or diarrhea. Denies fever or chills. Reports mild flank pain. Physical Exam Exam: Exam: Alert and oriented X3, calm and cooperative. Answers questions. Neuro: CN II-X11 intact, no focal neurodeficits Cardiac: S1 S2 RRR, No ectopy Pulmonary: lungs clear to auscultation, No increased WOB. Abdominal: BS active in all 4 quadrants, no guarding or tenderness MSK: Strength 5/5 upper and lower extremities : Deferred Extremities: No edema in lower extremities. No calf tenderness Psych: Mood stable, Quiet and cooperative. Skin: Warm and dry, Intact Vital Signs: Vital Signs: Last Vital Signs Temp 97.8 F 03/31/25 10:11 Pulse 69 03/31/25 10:11 Resp 16 03/31/25 10:11 BP 123/61 03/31/25 10:11 Pulse Ox 99 03/31/25 10:11 O2 Del Method Room Air 03/31/25 10:11 BMI result Body Mass Index 27.5 Objective Data Active Medications Acetaminophen (Acetaminophen 325 Mg Tablet) 650 mg PO Q6H PRN PRN Reason: Pain, Mild 1-3,fever,headache Albuterol/Ipratropium (Albuterol/Iprat 2.5/0.5mg 3 Ml Ampul.Neb) 3 ml INHALE Q4H PRN PRN Reason: Shortness of Breath/Wheezing Calcium Carbonate (Calcium Carbonate 750 Mg Tab.Chew) 750 mg PO Q4H PRN PRN Reason: Heartburn Dextrose (Dextrose 50 % 25 Gm/50 Ml Syringe) 25 gm IVPUSH Q15M PRN; Protocol PRN Reason: per Hypoglycemia Standing Ord. Glucose (Glucose Gel 15 Gm Gel..Gram.) 15 gm PO Q15M PRN; Protocol PRN Reason: per Hypoglycemia Standing Ord. Hydromorphone HCl (Hydromorphone Hcl 0.5 Mg/0.5 Ml Syringe) 0.5 mg IVPUSH Q4H PRN; Protocol PRN Reason: Pain, Moderate(Pain Scale 4-6) Hydromorphone HCl (Hydromorphone Hcl 1 Mg/Ml Syringe) 1 mg IVPUSH Q4H PRN; Protocol PRN Reason: Pain, Severe (Pain Scale 7-10) Ceftriaxone Sodium 1 gm/ (Sodium Chloride) 50 mls @ 100 mls/hr IV Q24H ROSALINDA Insulin Human Lispro (Insulin Lispro 100 Unit/Ml 3 Ml Vial) 0 unit SUBCUT Q6H ROSALINDA; Protocol Last Admin: 03/31/25 05:45 Dose: Not Given Documented By: JB Non-Admin Reason: NPO Magnesium Hydroxide (Milk Of Magnesia 30 Ml Oral.Susp) 30 ml PO DAILY PRN PRN Reason: Constipation Melatonin (Melatonin 3 Mg Tablet) 6 mg PO BEDTIME PRN PRN Reason: Insomnia Ondansetron HCl (Ondansetron Hcl 4 Mg/2 Ml Vial) 4 mg IVPUSH Q8H PRN PRN Reason: Nausea and Vomiting Polyethylene Glycol (Polyethylene Glycol 3350 17 Gm Powd.Pack) 17 gm PO DAILY PRN PRN Reason: Constipation Senna (Sennosides 8.6 Mg Tablet) 17.2 mg PO BEDTIME ROSALINDA Sodium Chloride (0.9 % Sodium Chloride Flush 3 Ml Syringe) 3 ml IVFLUSH QSHIFT [facility] Last Admin: 03/31/25 07:35 Dose: Not Given Documented By: JEM Non-Admin Reason: IV Running Labs 03/30/25 19:32 03/30/25 19:32 Labs: Laboratory Results - last 24 hr 03/30/25 03/31/25 03/31/25 19:32 05:08 05:50 MCV 90.9 MCH 28.8 MCHC 31.6 RDW 11.8 Plt Count 289 MPV 11.1 Immature Gran % (Auto) 0.3 Neut % (Auto) 64.5 Lymph % (Auto) 24.4 [place] % (Auto) 6.2 Eos % (Auto) 3.7 Baso % (Auto) 0.9 Lymph # (Auto) 2.6 [place] # (Auto) 0.7 Eos # (Auto) 0.4 Baso # (Auto) 0.1 Abs Immat Gran (auto) 0.03 Absolute Neuts (auto) 6.7 Absolute Nucleated RBC 0.000 Nucleated RBC % (auto) 0.0 Anion Gap 13 Estim Creat Clear Calc 72.8 Estimated GFR > 60 POC Glucose 180 H Random Glucose 197 H Lactic Acid 0.9 Calcium 10.0 Total Bilirubin 0.3 AST 33 H ALT 32 H Alkaline Phosphatase 146 H Total Protein 8.0 Albumin 4.6 Lipase 22 Urine Color RED Urine Appearance Turbid Urine pH 6.5 Ur Specific [place] 1.025 Urine Protein 300 (3+) H Urine Glucose (UA) 100 H Urine Ketones 15 Urine Blood Large (3+) H Urine Nitrite Positive H Ur Leukocyte Esterase Trace H Urine RBC >20 H Urine WBC 21-50 H Ur Squamous Epith Cells 6-10 Urine Bacteria None Seen Hyaline Casts 0-2 Assessment and Plan (1) Obstructed, uropathy: Status: Acute Plan Patient is a 65-year-old female Bulgarian speaking with past medical history IDDM previously on Trulicity that was stopped 1 year prior, obstructive uropathy 6 years ago, hypertension presents to the emergency department for significant left flank pain. Patient states she has had associated nausea and vomiting, chills, no fever and significant pain. ED provider reviewed case with Dr. Kelly and Dr. Kelly requesting admission and plans to take patient to OR today. Obstructive uropathy/ severe hydronephrosis with moderate hydroureter/ stone 1.3 cm pelvic brim Plan for cystoscopy, ureteroscopy, lithotripsy and stent on the left side with Dr. Kelly today. Patient is NPO Continue IV fluids Pain management with Dilaudid Antiemetic as needed Renal function stable, avoid hypotension and nephrotoxic medications Acute UTI Patient currently on ceftriaxone-last dose 5:11 this morning. Antibiotics per Urology team No leukocytosis, fever and patient does not meet criteria for sepsis on admission Follow urine culture Blood cultures were not ordered in the ED prior to antibiotics starting likely because patient did not meet sepsis criteria IDDM Patient currently NPO Sliding scale insulin ordered for q.6 hours while NPO. Hold metformin Hold Lantus Hypertension Blood pressure currently stable Hold antihypertensives DVT prophylaxis: Not indicated due to patient going to OR Full code status Quality Stroke Does the patient have a stroke diagnosis?: No Reason for No Anti-thrombotic by Day Two: Contraindicated (in case pt needs procedure ) VTE Prior VTE?: No VTE Risk Level:: Medical - moderate - high VTE Device Contraindication: N/A - Device Ordered VTE Drug Contraindication: Treatment Not Indicated
[2025-03-31] MEDS: Lactated Ringers 1,000 ML 100 ML IVCONT ×2 (11:00→21:16)
--- NOTE | 2025-03-31 11:15 | HO.NURTONUR ---
PER MD: Patient is a 65-year-old female Pakistani speaking with past medical history IDDM previously on Trulicity that was stopped 1 year prior, obstructive uropathy 6 years ago, hypertension presents to the emergency department for significant left flank pain. Patient states she has had associated nausea and vomiting, chills, no fever and significant left flank pain. Patient was seen previously in this ED 03/23/2025 for similar symptoms but did not complete the visit. Patient then went to [facility] on March 25 for the same issue, was found to have the pelvic rim stone but was safe for discharge home and was given oxycodone for pain management. Patient was instructed to return if her symptoms did not improve. For about the last 2 weeks patient has had intermittent episodes of hematuria and flank pain. Patient has been told that her stones in the past were calcium based. Patient was going to try to go to [place] this evening but lives very close to [facility] and could not make it to [facility] due to the pain. Patient has worked with Dr. Kelly in the past and Dr. Kelly requested admission and would see patient 1st thing in the morning. Patient currently has no leukocytosis and no anemia. Renal function is stable. Blood glucose 197. Lactic acid 0.9. AST 33, ALT 32 and alk-phos 146. Lipase 22. CT of the abdomen and pelvis notes severe left hydronephrosis and moderate hydroureter with a 1.3 cm obstructing stone at the pelvic brim. Dilaudid has been somewhat effective in controlling patient's pain and patient no longer has any nausea or vomiting. PER RN: Alert and oriented, ambulatory, portuguese speaking IV: 20G in right AC Meds: LR 100 mL/hr NPO since midnight Pain: L flank 09/29, just gave PRN dilaudid Already called and gave report to [facility] RN, told them we did not have her changed over yet because [place] is [place]. Knows she has to get changed over for surgery
[2025-03-31 12:08] LABS: Glucose, Whole Blood 156 mg/dL (60-115)
[2025-03-31 12:09] LABS: Hematocrit 40.1 % (37.0-47.0); Hemoglobin 12.8 g/dl (12.0-16.0); Imm Gran Abs Auto 0.02 X10*3/uL (0.00-0.03); Imm Gran Pct Auto 0.2 % (0.0-0.4); Lymphocytes Absolute Auto 3.8 X10*3/uL (1.2-4.9); MANUAL DIFF FLAG SCAN; Mean Corpuscular HGB Conc 31.9 g/dl (31.0-35.0); Mean Corpuscular Hemoglobin 28.9 pg (27.0-33.0); Mean Corpuscular Volume 90.5 fL (80.0-98.0); NRBC Abs Auto 0.000 X10*3/uL (0.0-0.012); NRBC Pct Auto 0.0 /100WBC (0.0-0.2); PLT CLUMP 1; Red Blood Count 4.43 X10*6/uL (4.20-5.50); SCAN SMEAR FLAG 1
[2025-03-31 12:25] LABS: Alanine Aminotransferase 25 U/L (0-31); Albumin Level 4.1 g/dL (3.5-5.0); Alkaline Phosphatase 135 U/L (39-117); Anion Gap 12 (12-20); Aspartate Amino Transferase 31 U/L (5-31); Blood Urea Nitrogen 8 mg/dL (9-16); Calcium 9.5 mg/dL (8.4-10.2); Carbon Dioxide 27 mmol/L (22-29); Chloride 107 mmol/L (96-108); Creatinine Clr Calc Pharmacy 80.8; Estimated Glomerular Filt Rate > 60; Potassium 4.1 mmol/L (3.3-5.1); Sodium 142 mmol/L (135-145); Total Protein 7.3 g/dL (6.5-8.0)
[2025-03-31 13:15] LABS: White Blood Count 10.1 X10*3/uL (4.8-10.8)
[2025-03-31 13:16] LABS: Platelet Count 199 X10*3/uL (160-400)
[2025-03-31 16:11] LABS: Glucose, Whole Blood 131 mg/dL (60-115)
--- NOTE | 2025-03-31 16:26 | MHC.SHP ---
Pre-Procedural Eval Section A - 24 Hr Update-Section A only Date of Service: 03/31/25 The patient is an INPATIENT: Yes Changes since office visit: No Cold of Flu in the past 2 weeks, No New Medical Problems, No Changes in Medication and No Patient answered all questions The patient has been examined within 24 hours of the surgical procedure. The History & Physical has been completed within 30 days and I have reviewed it.: Yes Section B - Complete if H&P > 30 days Chief Complaint: Obstructing Left Pelvic Brimstone Details of Present Illness: cysto, retor, uresteroscopy, laser, stent Allergies: Allergies Allergy/AdvReac Type Severity Reaction Status Date / Time tramadol Allergy Itching Verified 03/30/25 18:59 Plan I have reviewed the history and physical and performed a pertinent physical examination on my patient. No changes have occurred unless specified. Time Spent With Patient Time: Total time managing care of this patient today ____ minutes.
--- NOTE | 2025-03-31 16:55 | P.OP_ITS ---
Operative Note Operative Note Date of Service: 03/31/25 Narrative: PreOperative Diagnosis: distal left ureteric stone Post Operative Diagnosis: above Procedure: - cystoscopy, left retrograde - left dilatation of ureteric orifice under fluoroscopy - left ureteroscopy, laser lithotripsy, stone basketing - left stent placement Surgeon: Dr Garrett Kelly Anesthesia: General Indications for procedure: ER admission with left flank pain Imaging 8mm distal left ureteric stone with proximal hydronephrosis Procedure: After informed consent was verified the patient was brought to the operating room and placed in a supine position. Anesthesia was administered per protocol. The patient was placed in a modified dorsal lithotomy position and prepped and draped in a sterile fashion. Safety pause time-out and side of surgery were confirmed. Images were available for review. Antibiotic administration confirmed. A 22 [place] cystoscope was inserted per urethra. The urethra was without abnormality. The bladder was normal in its entirety. Both ureteric orifices were seen in normal position. The left ureteric orifice was cannulated and a retrograde examination was performed. Stone location consistent with imaging . A Sensor guidewire was placed up to the level of the renal pelvis under fluoroscopy. The rigid cystoscope was removed. A Pablo dilator was placed over the Sensor guidewire and used to dilate the ureteric orifice under fluoroscopy. The dilator was removed. The semi rigid ureteral scope was placed alongside the Sensor guidewire. Stone encounter in mid ureter. Using a 365 micro holmium laser fiber the stone was broken into small pieces using a combination of hammer and dusting techiques - 1.2 Watt 6Hz. Stone fragments were removed from the ureter using a zero tip basket. Once the fragments were removed a decision was made to place a ureteric stent. Based on the height of the patient a 6 Fr x 24 cm stent was used. The string was removed from the stent prior to placement. A 6 [place] by 24 cm double-J stent was placed into the renal pelvis and bladder under a combination of fluoroscopy and direct visualization. The symphisis pubis was used as a radiographic marker to release the stent and good coil was seen within the bladder confirming position Proximal positioning of the stent was confirmed using fluoroscopy. The bladder was emptied. The patient tolerated the procedure well and was extubated in the operating room. They were transferred in stable condition to the recovery area. Pathology: stones Drains: Double J stent as described above
[2025-03-31 21:10] LABS: Glucose, Whole Blood 242 mg/dL (60-115)
[2025-04-01 04:00] VITALS: BP 109/54; PULSE 82; RESP 18; TEMP 36.3; O2SAT 96
[2025-04-01 04:09] LABS: Glucose, Whole Blood 125 mg/dL (60-115)
[2025-04-01] MEDS: Lactated Ringers 1,000 ML 100 ML IVCONT (05:09)
[2025-04-01 06:36] LABS: MANUAL DIFF FLAG NO
[2025-04-01 06:40] LABS: Hematocrit 33.0 % (37.0-47.0); Hemoglobin 10.6 g/dl (12.0-16.0); Imm Gran Abs Auto 0.03 X10*3/uL (0.00-0.03); Imm Gran Pct Auto 0.3 % (0.0-0.4); Lymphocytes Absolute Auto 3.2 X10*3/uL (1.2-4.9); Mean Corpuscular HGB Conc 32.1 g/dl (31.0-35.0); Mean Corpuscular Hemoglobin 28.8 pg (27.0-33.0); Mean Corpuscular Volume 89.7 fL (80.0-98.0); NRBC Abs Auto 0.000 X10*3/uL (0.0-0.012); NRBC Pct Auto 0.0 /100WBC (0.0-0.2); Platelet Count 225 X10*3/uL (160-400); Red Blood Count 3.68 X10*6/uL (4.20-5.50); White Blood Count 9.1 X10*3/uL (4.8-10.8)
[2025-04-01 07:04] LABS: Alanine Aminotransferase 19 U/L (0-31); Albumin Level 3.4 g/dL (3.5-5.0); Alkaline Phosphatase 111 U/L (39-117); Anion Gap 10 (12-20); Aspartate Amino Transferase 25 U/L (5-31); Blood Urea Nitrogen 9 mg/dL (9-16); Calcium 8.8 mg/dL (8.4-10.2); Carbon Dioxide 27 mmol/L (22-29); Chloride 107 mmol/L (96-108); Creatinine Clr Calc Pharmacy 83.6; Estimated Glomerular Filt Rate > 60; Potassium 4.1 mmol/L (3.3-5.1); Sodium 140 mmol/L (135-145); Total Protein 6.1 g/dL (6.5-8.0)
--- NOTE | 2025-04-01 07:58 | HO.POSTANES ---
Post Anesthesia Evaluation Post Anesthesia Evaluation Date of Service: 04/01/25 Vital Signs: Vital Signs Temp Pulse Resp BP Pulse Ox O2 Del Method 04/01/25 04:00 97.4 F 82 18 109/54 L 96 Room Air 03/31/25 23:38 97.5 F 71 18 115/58 L 94 Room Air Anesthesia: General Mental Status: Awake Pain Control: Satisfactory Nausea/Vomiting: None Hydration: Adequate Anesthesia-Related Issues: No Anes. Related Issues
[2025-04-01 08:00] VITALS: BP 118/68; PULSE 75; RESP 16; TEMP 36.6; O2SAT 95
[2025-04-01 08:46] LABS: Glucose, Whole Blood 158 mg/dL (60-115)
[2025-04-01 11:24] LABS: Glucose, Whole Blood 197 mg/dL (60-115)
--- NOTE | 2025-04-01 11:25 | P.DS_ITS ---
DS: Providers Provider Date of Service: 04/01/25 Date of admission: 03/31/25 05:15 Date of discharge: 04/01/25 Primary care physician: Birgit Patel NP Consults: 03/31/25 05:18 Consult to Urology Routine Consulting Provider: [facility] Reason for consultation: left pelvic brim obs stone with flank pain Has provider been notified: Yes DS: Diagnosis Discharge Diagnosis (1) Obstructed, uropathy: Status: Acute (2) Acute UTI: Status: Acute (3) Urinary tract stones: Status: Acute DS: Summary Hospital Course Hospital Course: From the history and physical by Te Tiwari, 03/31/25: 'Patient is a 65-year-old female [place] speaking with past medical history IDDM previously on Trulicity that was stopped 1 year prior, obstructive uropathy 6 years ago, hypertension presents to the emergency department for significant left flank pain. Patient states she has had associated nausea and vomiting, chills, no fever and significant left flank pain. Patient was seen previously in this ED 03/23/2025 for similar symptoms but did not complete the visit. Patient then went to [facility] on March 25 for the same issue, was found to have the pelvic rim stone but was safe for discharge home and was given oxycodone for pain management. Patient was instructed to return if her symptoms did not improve. For about the last 2 weeks patient has had intermittent episodes of hematuria and flank pain. Patient has been told that her stones in the past were calcium based. Patient was going to try to go to [place] this evening but lives very close to [facility] and could not make it to [facility] due to the pain. Patient has worked with Dr. Kelly in the past and Dr. Kelly requested admission and would see patient 1st thing in the morning. Patient currently has no leukocytosis and no anemia. Renal function is stable. Blood glucose 197. Lactic acid 0.9. AST 33, ALT 32 and alk-phos 146. Lipase 22. CT of the abdomen and pelvis notes severe left hydronephrosis and moderate hydroureter with a 1.3 cm obstructing stone at the pelvic brim. Dilaudid has been somewhat effective in controlling patient's pain and patient no longer has any nausea or vomiting.' She was admitted to the medical-surgical unit with Urology consultation. Dr Garrett Kelly took her to the OR 03/31/25 and found a distal left ureteric stone. She underwent cystoscopy, left retrograde/left dilatation of ureteric orifice under fluoroscopy/left ureteroscopy, laser lithotripsy, stone basketing/left stent placement. Pain was relieved. She was treated with ceftriaxone for infection. Cultures negative. She was discharged on cefuroxime and will follow up with Dr Kelly for stone removal. Time Attestation Discharge Coordination Time (in mins): 35 Quality: Safe Use of Opioids Does Pt have an Active Cancer Diagnosis on the Problem List?: No Quality: Stroke Does the patient have a stroke diagnosis?: No Physical Exam Vital Signs: Vital Signs: Last Vital Signs Temp 97.8 F 04/01/25 08:00 Pulse 75 04/01/25 08:00 Resp 16 04/01/25 08:00 BP 118/68 04/01/25 08:00 Pulse Ox 95 04/01/25 08:00 O2 Del Method Room Air 04/01/25 08:00 O2 Flow Rate 6 03/31/25 17:05 BMI result Body Mass Index 27.0 Gen: in no acute distress HEENT: sclera anicteric, moist mucus membranes Neck: supple Lungs: clear to auscultation bilaterally Heart: regular rate and rhythm, no murmurs Abd: soft, non-tender, non-distended Ext: no edema Skin: warm/well-perfused Neuro: alert and oriented x3, no focal findings Psych: appropriate affect DS: Data Data Completed and Pending Completed studies during hospitalization [Text1]: Laboratory Results WBC 9.1 X10*3/uL (4.8-10.8) 04/01/25 06:06 RBC 3.68 X10*6/uL (4.20-5.50) L 04/01/25 06:06 Hgb 10.6 g/dl (12.0-16.0) L 04/01/25 06:06 Hct 33.0 % (37.0-47.0) L 04/01/25 06:06 MCV 89.7 fL (80.0-98.0) 04/01/25 06:06 MCH 28.8 pg (27.0-33.0) 04/01/25 06:06 MCHC 32.1 g/dl (31.0-35.0) 04/01/25 06:06 RDW 11.8 % (11.0-16.0) 04/01/25 06:06 Plt Count 225 X10*3/uL (160-400) 04/01/25 06:06 MPV 11.4 fL (9.4-12.3) 04/01/25 06:06 Immature Gran % (Auto) 0.3 % (0.0-0.4) 04/01/25 06:06 Neut % (Auto) 50.8 % (45-73) 04/01/25 06:06 Lymph % (Auto) 34.8 % (20-40) 04/01/25 06:06 [place]mer[place] % (Auto) 7.7 % (2-11) 04/01/25 06:06 Eos % (Auto) 5.6 % (0-4) H 04/01/25 06:06 Baso % (Auto) 0.8 % (0-2) 04/01/25 06:06 Lymph # (Auto) 3.2 X10*3/uL (1.2-4.9) 04/01/25 06:06 Esmer[place]da # (Auto) 0.7 X10*3/uL (0.1-1.2) 04/01/25 06:06 Eos # (Auto) 0.5 X10*3/uL (0.0-0.4) H 04/01/25 06:06 Baso # (Auto) 0.1 X10*3/uL (0.0-0.2) 04/01/25 06:06 Abs Immat Gran (auto) 0.03 X10*3/uL (0.00-0.03) 04/01/25 06:06 Absolute Neuts (auto) 4.7 x10*3/uL (2.0-8.3) 04/01/25 06:06 Absolute Nucleated RBC 0.000 X10*3/uL (0.0-0.012) 04/01/25 06:06 Nucleated RBC % (auto) 0.0 /100WBC (0.0-0.2) 04/01/25 06:06 Smear Tech's Comments VERIFIED 03/31/25 11:59 Sodium 140 mmol/L (135-145) 04/01/25 06:06 Potassium 4.1 mmol/L (3.3-5.1) 04/01/25 06:06 Chloride 107 mmol/L (96-108) 04/01/25 06:06 Carbon Dioxide 27 mmol/L (22-29) 04/01/25 06:06 Anion Gap 10 (12-20) L 04/01/25 06:06 BUN 9 mg/dL (9-16) 04/01/25 06:06 Creatinine 0.57 mg/dL (0.5-1.4) 04/01/25 06:06 Estim Creat Clear Calc 83.6 04/01/25 06:06 Estimated GFR > 60 04/01/25 06:06 POC Glucose 197 mg/dL (60-115) H 04/01/25 11:09 Random Glucose 163 mg/dL (60-115) H 04/01/25 06:06 Lactic Acid 0.9 mmol/L (0.5-2.0) 03/31/25 05:08 Calcium 8.8 mg/dL (8.4-10.2) D 04/01/25 06:06 Total Bilirubin 0.3 mg/dL (0.0-1.0) 04/01/25 06:06 AST 25 U/L (5-31) 04/01/25 06:06 ALT 19 U/L (0-31) 04/01/25 06:06 Alkaline Phosphatase 111 U/L (39-117) 04/01/25 06:06 Total Protein 6.1 g/dL (6.5-8.0) L 04/01/25 06:06 Albumin 3.4 g/dL (3.5-5.0) L 04/01/25 06:06 Lipase 22 U/L (8-78) 03/30/25 19:32 Urine Color RED 03/30/25 19:32 Urine Appearance Turbid 03/30/25 19:32 Urine pH 6.5 (5.0-9.0) 03/30/25 19:32 Ur Specific [place] 1.025 (1.005-1.025) 03/30/25 19:32 Urine Protein 300 (3+) mg/dL (Neg-Trace) H 03/30/25 19:32 Urine Glucose (UA) 100 mg/dL (Negative) H 03/30/25 19:32 Urine Ketones 15 mg/dL (Negative) 03/30/25 19:32 Urine Blood Large (3+) (Negative) H 03/30/25 19:32 Urine Nitrite Positive (Negative) H 03/30/25 19:32 Ur Leukocyte Esterase Trace (Negative) H 03/30/25 19:32 Urine RBC >20 /HPF (0-2) H 03/30/25 19:32 Urine WBC 21-50 /HPF (0-5) H 03/30/25 19:32 Ur Squamous Epith Cells 6-10 /HPF (0-2) 03/30/25 19:32 Urine Bacteria None Seen (None Seen) 03/30/25 19:32 Hyaline Casts 0-2 /LPF (0-2) 03/30/25 19:32 Impressions Guidance Fluoroscopy 03/31/25 16:43 IMPRESSION: Fluoroscopy during procedure. Please see procedure report for additional information. Electronically signed by: Fuad Tinoco MD 04/01/2025 07:01 AM [facility] [place]ending studies at discharge: Pending at discharge 03/31/25 16:50 Surgical Path [Surgical] [PTH] Routine Discharge Plan Discharge Anticipated Discharge Date/Time: 04/01/25 11:21 Patient Disposition: Home, Self-Care Discharge Diagnosis: obstructive uropathy due to stones, urinary tract infection Referrals: Garrett Kelly MD [Physician, Urology] - 1 Week PhysicianMichell [Primary Care Provider, Medical] - 1 Week Discharge Medications: New cefuroxime axetil 500 mg tablet 500 mg PO BID Qty: 10 0RF Continued amlodipine 2.5 mg tablet 2.5 mg PO BEDTIME gabapentin 100 mg capsule 100 mg PO BEDTIME metformin 500 mg tablet extended release 24 hr 500 mg PO BID valsartan 160 mg tablet 160 mg PO BEDTIME insulin lispro 100 unit/mL insulin pen See Protocol SUBCUT TIDA Protocol: Insulin Correction Scale Less than or equal to 110 ---- Give (units): 0 111 to 150 Give (units): 0 151 to 200 Give (units): 2 201 to 250 Give (units): 4 251 to 300 Give (units): 6 301 to 350 Give (units): 8 Greater than 350 Give (units): 10 Call MD if Blood Glucose > : 350 insulin glargine [Lantus Solostar U-100 Insulin] 100 unit/mL (3 mL) insulin pen 34 unit SUBCUT BEDTIME acetaminophen 500 mg Tablet 1,000 mg PO Q6H PRN (Reason: Pain) vitamin D3-vitamin K2 (MK4) 1,000-100 unit-mcg Tablet 1 tab PO DAILY Discharge Orders: Discharge Order (Routine); Ordered 04/01/25 Ordered By: Donnie Huerta Diet: Diabetic diet Activity on Discharge: As tolerated Stand Alone Forms: Patient Portal Discharge page Print Language: [place] Care Plan Goals: urinary health Health Concerns: obstructive uropathy due to stones, urinary tract infection Plan of Treatment: take cefuroxime axetil 500 mg twice daily for 5 days take ibuprofen or acetaminophen for pain control drink plenty of fluids follow up with [facility] as scheduled for stent removal Please follow up with your primary care doctor within 1 week. Return to the hospital if you experience recurrent or worsening symptoms. Assessment: See Discharge Summary.
[2025-04-01 11:36] VITALS: BP 142/70; PULSE 77; RESP 16; TEMP 36.8; O2SAT 97
--- NOTE | 2025-04-01 12:06 | PM.UROPN ---
Subjective Subjective Date of Service: 04/01/25 Interval history: Significant improvement following procedure last night Planning for discharge She will be seen in office next week for stent removal Physical Exam Vital Signs: Vital Signs: Last Vital Signs Temp 98.3 F 04/01/25 11:36 Pulse 77 04/01/25 11:36 Resp 16 04/01/25 11:36 BP 142/70 H 04/01/25 11:36 Pulse Ox 97 04/01/25 11:36 O2 Del Method Room Air 04/01/25 11:36 O2 Flow Rate 6 03/31/25 17:05 BMI result Body Mass Index 27.0 Const: General: cooperative, healthy appearing, comfortable and no acute distress Orientation/consciousness: patient oriented x3 HEENT: Face and sinus: Yes normal facial exam Mouth: moist mucous membranes Neck: Neck: Yes normal visual inspection, Yes full ROM and Yes trachea midline Chest: Chest palpation & inspection: normal inspection of the chest Resp: Effort & Inspection: normal respiratory effort, able to speak in complete sentences and no respiratory distress GI: Inspection: Yes normal to inspection Back/Spine/Pelvis: Cervical Spine: normal cervical lordosis Thoracic/Lumbar Spine: thoracic and lumbar spine normal to inspection Skin: General skin exam: no rashes or lesions noted Neuro: General: patient oriented x3, tone normal and moves all extremities Extrem: General: Yes normal to inspection and Yes capillary refill normal Urology Results Labs 04/01/25 06:06 04/01/25 06:06 Labs: Laboratory Results - last 24 hr 03/31/25 03/31/25 03/31/25 11:59 12:00 16:07 WBC 10.1 RBC 4.43 Hgb 12.8 Hct 40.1 MCV 90.5 MCH 28.9 MCHC 31.9 RDW 11.8 Plt Count 199 D MPV 11.2 Immature Gran % (Auto) 0.2 Neut % (Auto) 49.0 Lymph % (Auto) 38.0 [place] % (Auto) 6.6 Eos % (Auto) 5.3 H Baso % (Auto) 0.9 Lymph # (Auto) 3.8 [place] # (Auto) 0.7 Eos # (Auto) 0.5 H Baso # (Auto) 0.1 Abs Immat Gran (auto) 0.02 Absolute Neuts (auto) 5.0 Absolute Nucleated RBC 0.000 Nucleated RBC % (auto) 0.0 Smear Tech's Comments VERIFIED Sodium 142 Potassium 4.1 Chloride 107 Carbon Dioxide 27 Anion Gap 12 BUN 8 L Creatinine 0.59 Estim Creat Clear Calc 80.8 Estimated GFR > 60 POC Glucose 156 H 131 H Random Glucose 148 H Calcium 9.5 Total Bilirubin 0.5 AST 31 ALT 25 Alkaline Phosphatase 135 H Total Protein 7.3 Albumin 4.1 03/31/25 04/01/25 04/01/25 21:05 04:04 06:06 WBC 9.1 RBC 3.68 L Hgb 10.6 L Hct 33.0 L MCV 89.7 MCH 28.8 MCHC 32.1 RDW 11.8 Plt Count 225 MPV 11.4 Immature Gran % (Auto) 0.3 Neut % (Auto) 50.8 Lymph % (Auto) 34.8 [place] % (Auto) 7.7 Eos % (Auto) 5.6 H Baso % (Auto) 0.8 Lymph # (Auto) 3.2 [place] # (Auto) 0.7 Eos # (Auto) 0.5 H Baso # (Auto) 0.1 Abs Immat Gran (auto) 0.03 Absolute Neuts (auto) 4.7 Absolute Nucleated RBC 0.000 Nucleated RBC % (auto) 0.0 Smear Tech's Comments Sodium 140 Potassium 4.1 Chloride 107 Carbon Dioxide 27 Anion Gap 10 L BUN 9 Creatinine 0.57 Estim Creat Clear Calc 83.6 Estimated GFR > 60 POC Glucose 242 H 125 H Random Glucose 163 H Calcium 8.8 D Total Bilirubin 0.3 AST 25 ALT 19 Alkaline Phosphatase 111 Total Protein 6.1 L Albumin 3.4 L 04/01/25 04/01/25 08:40 11:09 WBC RBC Hgb Hct MCV MCH MCHC RDW Plt Count MPV Immature Gran % (Auto) Neut % (Auto) Lymph % (Auto) [place] % (Auto) Eos % (Auto) Baso % (Auto) Lymph # (Auto) [place] # (Auto) Eos # (Auto) Baso # (Auto) Abs Immat Gran (auto) Absolute Neuts (auto) Absolute Nucleated RBC Nucleated RBC % (auto) Smear Tech's Comments Sodium Potassium Chloride Carbon Dioxide Anion Gap BUN Creatinine Estim Creat Clear Calc Estimated GFR POC Glucose 158 H 197 H Random Glucose Calcium Total Bilirubin AST ALT Alkaline Phosphatase Total Protein Albumin Progress Note: A&P Assessment and plan (1) Urinary tract stones: Status: Acute Plan Next week follow-up office Time Spent With Patient Time: Total time managing care of this patient today ____ minutes. Progress Note: Quality Stroke Does the patient have a stroke diagnosis?: No Reason for No Anti-thrombotic by Day Two: Contraindicated (in case pt needs procedure )
== END 2025-04-01 12:10 | disposition home or self-care (01) | DRG 446 ==
LOC: HO.ED 03-31 05:16 → HO.EDOVER 03-31 05:20 → HO.S3 03-31 10:53
PROVIDERS: Internal Medicine; Nurse Practitioner Family; Physician Assistant; Urology; Admitting Provider Nurse Practitioner Family; Emergency Provider Emergency Medicine; Visit Provider Family Medicine
PROC: 0TC78ZZ Extirpation of Matter from Left Ureter, Via Natural or Artificial Opening Endoscopic (ICD-10-PCS; CPT 52356; principal; 2025-03-31 16:00)
DX: N13.6 Pyonephrosis (principal); E11.9 Type 2 diabetes mellitus without complications; I10 Essential (primary) hypertension; Z79.4 Long term (current) use of insulin; Z79.84 Long term (current) use of oral hypoglycemic drugs; Z79.899 Other long term (current) drug therapy
CPT/HCPCS: 52356; 36415; 74176; 80053; 81001; 81003; 82365; 82947; 83605; 83690; 85025; 87040; 87086; 88300; 93005; 99221; 99285; C1758; C1769; C2617; J0696; J1171; J1885; J2003; J2250; J2405; J2704; J3010; J7120; Q9967

== ENCOUNTER → 2025-03-30 19:00 | Outpatient (BNV) | payer OTHER, SELFPAY | PROVIDERS: Visit Provider Student in an Organized Health Care Education/Training Program | DX: N13.2 Hydronephrosis with renal and ureteral calculous obstruction (principal); N13.4 Hydroureter | CPT/HCPCS: 74176 ==

== ENCOUNTER 2025-03-31 05:15 | Outpatient (BNV) | payer OTHER, SELFPAY | END 2025-03-31 06:03 | PROVIDERS: Admitting Provider Nurse Practitioner Family; Emergency Provider Emergency Medicine; Visit Provider Internal Medicine Cardiovascular Disease | DX: Z01.818 Encounter for other preprocedural examination (principal) | CPT/HCPCS: 93010 ==

== ENCOUNTER → 2025-03-31 05:15 | Outpatient (BNV) | payer OTHER, SELFPAY | PROVIDERS: Admitting Provider Nurse Practitioner Family; Emergency Provider Emergency Medicine; Visit Provider Nurse Practitioner Family | DX: N13.9 Obstructive and reflux uropathy, unspecified (principal); N39.0 Urinary tract infection, site not specified | CPT/HCPCS: 99223 ==

== ENCOUNTER → 2025-03-31 05:15 | Outpatient (BNV) | payer OTHER, SELFPAY | PROVIDERS: Admitting Provider Nurse Practitioner Family; Emergency Provider Emergency Medicine; Visit Provider Urology | DX: N20.9 Urinary calculus, unspecified (principal) | CPT/HCPCS: 99231 ==

== ENCOUNTER 2025-04-08 09:40 | Outpatient (AMB) | payer OTHER, SELFPAY ==
--- NOTE | 2025-04-08 09:44 | MHC.OFFVIS ---
Intake Visit Reasons: cysto/ stent removal Intake Note: Reason for Visit: Cystoscopy/Stent removal Urology Meds: None Blood Thinners: None Antibiotic Allergy: None Labs: None Imaging: None Last PVR: None URO G-HD Cystoscope LOT [id number] EXP 09/29/2027 Allergies tramadol Allergy (Verified 03/30/25 18:59) Itching HPI Comments Details: Judy is a pleasant female. She is seen for the following urologic conditions - renal stones Prior history Here for stent removal Nephrolithiasis Recurrent stone former Has had intermittent hematuria with flank pain Laboratories - elevated blood glucose, lactate 0.9, calcium 10.0, creatinine 0.66 Positive nitrites, positive blood Imaging - CT of the abdomen and pelvis notes severe left hydronephrosis and moderate hydroureter with a 1.3 cm obstructing stone at the pelvic brim Intervention - left ureteroscopy Stone composition - mixed calcium oxalate Plan - start allopurinol and potassium citrate Three-month follow-up renal ultrasound [facility] Medical History (Updated 04/08/25 @ 10:50 by Garrett Kelly MD) Obstructed, uropathy Diabetes HTN (hypertension) Surgical History H/O: hysterectomy Social History Household Members: Spouse and Children Housing: House Do you presently have visiting nurse or other home services: No Patient Tobacco Use Status: Never used Tobacco Review of Systems Const Denies chills and Denies fever(s) Card Reports no additional complaints and Denies syncope Resp Denies cough GI Denies abdominal pain and Denies heartburn Reports as per HPI and Denies change in libido Neuro Denies syncope Psych Denies change in libido Endo Denies change in libido Physical Exam Const General: cooperative, healthy appearing, comfortable and no acute distress Orientation/consciousness: patient oriented x3 HEENT Face and sinus: Yes normal facial exam Mouth: moist mucous membranes Neck Neck: Yes normal visual inspection, Yes full ROM and Yes trachea midline Chest Chest palpation & inspection: normal inspection of the chest Resp Effort & Inspection: normal respiratory effort, able to speak in complete sentences and no respiratory distress GI Inspection: Yes normal to inspection Back/Spine/Pelvis Cervical Spine: normal cervical lordosis Thoracic/Lumbar Spine: thoracic and lumbar spine normal to inspection Skin General skin exam: no rashes or lesions noted Neuro General: patient oriented x3, gait normal, tone normal and moves all extremities Extrem General: Yes normal to inspection and Yes capillary refill normal Office Procedures Cystoscopy Consent Discussed risk and benefit or proposed procedure with the patient. Information consent for procedure given to the patient. Discussed technical aspects, risks, benefits and alternatives in full. Addressed all of the patient's questions and concerns regarding the procedure. The patient demonstrated knowledge and understanding. They wish to proceed with this procedure. Preparation The patient was prepped in the usual manner. A fish house worker was present and in the room. Genitalia was prepped with betadine solution in a sterile manner. Lidocaine Jelly 2% was placed into the urethra and 16Fr flexible Olympus cystoscope was inserted into the meatus after adequate lubrication. Procedure Consent confirmed Genitalia prepped and draped using topical antiseptic and lidocaine jelly Cystoscopy performed using a sterile disposable Urovue digital 16 Georgian cystoscope No abnormality noted of urethra during placement Indwelling stent seen within bladder emerging from left ureteric orifices The stent was grasped with a 3 prong grasper and removed without difficulty The patient tolerated the procedure well [id number] with stent removal DISPOSABLE SCOPE URO-G FLEXIBLE SCOPE Procedure code (CPT) selection complete Office Meds lidocaine HCl 2 % mucosal jelly in applicator Performing Provider: Garrett Kelly MD Performing Location: [facility] Administered by: Franky Ny LPN on 04/08/25 10:22 Dose Route Admin Location Dispensed Lot Number Expiration Date NDC Plastics Technician 10 mL intra-urethral 10 mL nitrofurantoin monohydrate/macrocrystals 100 mg capsule Performing Provider: Garrett Kelly MD Performing Location: [facility] Administered by: Franky Ny LPN on 04/08/25 10:22 Dose Route Admin Location Dispensed Lot Number Expiration Date NDC Plastics Technician 100 mg PO 1 cap naproxen 500 mg tablet Performing Provider: Garrett Kelly MD Performing Location: [facility] Administered by: Franky Ny LPN on 04/08/25 10:22 Dose Route Admin Location Dispensed Lot Number Expiration Date NDC Plastics Technician 500 mg PO 1 tab Results AMB Urinalysis, Automated UA Leukoctes 70 Tim/uL Last Edit by SILVIA JuarezA on 04/08/25 10:24 UA Nitrite Negative Last Edit by Osiris Alberto, RMA on 04/08/25 10:24 UA Urobilinogen 0.2 mg/dL Last Edit by Osiris Alberto, RMA on 04/08/25 10:24 UA Protein 100 mg/dL Last Edit by Osiris Alberto, RMA on 04/08/25 10:24 UA pH 6.0 Last Edit by Osiris Alberto, RMA on 04/08/25 10:24 UA Blood 200 Sal/uL Last Edit by Osiris Alberto, RMA on 04/08/25 10:24 UA Specific Ketch[place] 1.020 Last Edit by Osiris Alberto, RMA on 04/08/25 10:24 UA Ketone Negative Last Edit by Osiris Alberto, RMA on 04/08/25 10:24 UA Bilirubin 0 mg/dL Last Edit by Osiris Alberto, RMA on 04/08/25 10:24 UA Glucose 0 mg/dL Last Edit by Osiris Alberto, RMA on 04/08/25 10:24 Results Reviewed Results Reviewed: Laboratory Last Values Urine pH (Auto) 6.0 04/08/25 10:23 Specific Ketchum (Auto) 1.020 04/08/25 10:23 Urine Protein (Auto) 100 mg/dL 04/08/25 10:23 Glucose (UA)(Auto) 0 mg/dL 04/08/25 10:23 Urine Ketones (Auto) Negative 04/08/25 10:23 Urine Blood (Auto) 200 Sal/uL 04/08/25 10:23 Urine Nitrite (Auto) Negative 04/08/25 10:23 Urine Bilirubin (Auto) 0 mg/dL 04/08/25 10:23 Urine Urobilinogen (Auto) 0.2 mg/dL 04/08/25 10:23 Leukocyte Esterase (Auto) 70 Tim/uL 04/08/25 10:23 Assessment & Plan Assessment & Plan (1) Nephrolithiasis: Code(s): N20.0 - Calculus of kidney Category: Medical (2) Acute UTI: Code(s): N39.0 - Urinary tract infection, site not specified Category: Medical Plan Three-month follow-up renal ultrasound Orders: Orders AMB Cystoscopy Today N20.9 - Urinary calculus, unspecified US renal BI 3 Months N20.9 - Urinary calculus, unspecified AMB Urinalysis Automated Today Z13.9 - Encounter for screening, unspecified Medications: New allopurinol 100 mg PO DAILY 90 tabs 1RF 90 days N20.9 - Urinary calculus, unspecified potassium citrate ER 10 mEq PO BID 180 tabs 1RF 90 days N20.9 - Urinary calculus, unspecified Patient Instructions: This note is constructed using voice recognition software. While every effort has been made to ensure accuracy cordwood cutter errors may have been included. Imaging studies, laboratory and physical exam results were discussed and reviewed in detail. No major barriers to patient understanding were identified. An opportunity to ask questions regarding the treatment plan was provided. All questions were answered. The patient expressed understanding and agreement with the above treatment plan. The patient is aware they should contact our office by phone for worsening of their current condition or the appearance of new urologic symptoms. Compliance is encouraged with any medications and followup testing that is ordered. It is a privilege to participate in the urologic care of your patient. If you have any questions or concerns regarding treatment for the above conditions, or other urologic issues, please do not hesitate to contact me. The office telephone contact is [phone]. Sincerely, Dr Garrett Kelly MD, [facility] - Urology Compassionate Specialist Care for the Genitourinary System Coding Level of Care Code Est Pt Level 4 (93830) Add On Problem Visit Only Diagnoses Nephrolithiasis N20.0 Acute UTI N39.0 CPT Codes Cystoscopy - CPT: 93705-[id number] with stent removal ([id number])
--- OUTSIDE RECORDS SUMMARY | 2025-04-08 11:22 | XMS_ITS | Encounter Summary ---
Author Organization [facility] Address [address] [place] [address] Care Team Providers Care Park Worker Supervisor Name Role Phone Tayla Pleitez MELVI Primary Care Provider [phone] Reason for Visit * Reason Onset Date Comments prior authorization 03/26/2025 Encounter Details Date Type Department Care Team (Late st Contact Info) Description 03/26/2025 Telephone Endocrinology - [place] [address] [place] [phone] Alysha Salgado PA [address] [place] [address] Social History Tobacco Use Types Packs/Day Years Used Date Smoking Tobacco: Never Smokeless Tobacco: Never Comments Unknown Sex and Gender Information Value Date Recorded Sex Assigned at Not on file Legal Sex Female 6:14 AM EST Gender Identity Not on file Sexual Orientation Not on file documented as of this encounter Progress Notes * Latesha Franks RN - 04/06/2025 10:22 AM EST Called [facility] patient picked up sensors yesterday * Latesha Franks RN - 03/31/2025 2:17 PM EST PA faxed to [facility] today * Latesha Franks RN - 03/29/2025 4:07 PM EST RG completed to [employer] via [facility] Decision pending * Olivia Rueda - 03/26/2025 2:06 PM EST Endocrine Call Primary endocrine provider: Alysha Salgado PA-C Is the endocrine provider in the office toady?: no Who is calling? A pharmacist: Pharmacy: [facility] Pharmacy Pharmacist Name: n/a Pharmacy . If not the patient or parent/guardian please check for authorization to share/verbal release. Why is the person calling? Prior authorization. Insulin pumps or CGM (Rubén or Dexcom). Please forward to endocrine pool (p [id number]). Prior Authorization for Medication-do not complete and send this encounter unless you have the fax from the pharmacy. Is this a Cover My Meds request: Yes -- Sahu Code [id number] Name of Medication FreeStyle Rubén 3 Plus Sensor What Pharmacy did the fax come from: [facility] Pharmacy #[id number] Pharmacy fax #: [phone] documented in this encounter Plan of Treatment Upcoming Encounters Date Type Department Care Team (Late st Contact Info) Description 06/30/2025 1:30 PM EDT Office Visit Endocrinology - [place] [address] [place] [phone] Alysha Salgado PA [address], [place] documented as of this encounter Visit Diagnoses Not on filedocumented in this encounter Care Teams Park Worker Supervisor Relationship Specialty Start Date End Date Tayla Pleitez NP [facility] [place] [address] PCP - General 07/25/23 documented as of this encounter
--- OUTSIDE RECORDS SUMMARY | 2025-04-08 11:22 | XMS_ITS | Clinical Summary ---
Author Organization [facility] [address] [facility] Address [address] [place] [address] Phone Care Team Providers Care Offset Label Rewinder Name Role Phone Tayla Pleitez NP Primary Care Provider [phone] Allergies Active Allergy Reactions Criticality Noted Date Comments Tramadol Rash 07/24/2023 Medications glucose sensor,implant-d examet device 1 Each by [...] mouth every 6 hours as needed. Active metFORMIN XR (GLUCOPHAGE-XR) 500 mg 24 hr tabletIndication s:Type 2 diabetes mellitus with hyperglycemia (CMS/HCC V24, CMS/HCC V28) TAKE 1 TABLET BY MOUTH TWICE A DAY WITH FOOD 180 tablet 3 025 Active insulin glargine (Lantus Solostar U-100 Insulin) 100 unit/mL (3 mL) injection pen TAKE 34 UNITS AT BEDTIME. Increase by 2 units every 3 days with a max dose of 40 units if fasting sugars remain over 130 30 mL 2 025 Active insulin lispro (HumaLOG KwikPen Insulin) 100 unit/mL injection pen USE BEFORE EACH MEAL, UP TO 3 TIMES A DAY, SLIDING SCALE 100-149: 6 UNITS 150-199: 8 UNITS 200-249: 10 UNITS 250-299: 12 UNITS 300-349:14 UNITS 350-400: 16 UNITS GREATER THAN 400, CALL ME. 30 mL 2 Active blood-glucose sensor, Freestyle Rubén 3 Plus, (FreeStyle Rubén 3 Plus Sensor)Indicatio ns:Type 2 diabetes mellitus with hyperglycemia, with long-term current use of insulin (CMS/[facility] V24, CMS/[employer] V28) Apply 1 sensor and change every 15 days. Use one sensor every 15 days 6 each 2 Active blood-glucose sensor (FreeStyle Rubén 3 Plus Sensor) deviceIndication s:Type 2 diabetes mellitus with hyperglycemia, with long-term current use of insulin (CMS/[employer] V24, CMS/[employer] V28) 1 EA See administration instructions. Use one sensor every 15 days 6 each 3 024 2024 Discontinued(R eorder) cholecalciferol (VITAMIN D-3) 50 mcg (2,000 unit) tablet Take 1 tablet (2,000 Units total) by mouth 1 (one) time each day. 2024 Discontinued insulin lispro (HumaLOG KwikPen Insulin) 100 unit/mL injection pen Use before each meal, up to 3 times a day, sliding scale 100-149: 5 units 150-199: 6 units 200-249: 8 units 250-299: 10 units 300-349: 12 units 350-400: 14 units Greater than 400, call me. 025 2024 Discontinued Lantus Solostar U-100 Insulin 100 unit/mL (3 mL) injection pen TAKE 20-30 UNITS AT BEDTIME. INCREASE BY 2 UNITS EVERY 3 DAYS WITH A MAX DOSE OF 30 UNITS IF FASTING SUGARS REMAIN OVER 130 30 mL 2 025 2024 Discontinued(R eorder) insulin lispro (HumaLOG KwikPen Insulin) 100 unit/mL injection pen USE BEFORE EACH MEAL, UP TO 3 TIMES A DAY, SLIDING SCALE 100-149: 0 UNITS 150-199: 2 UNITS 200-249: 3 UNITS 250-299: 4 UNITS 300-349:5 UNITS 350-400: 6 UNITS GREATER THAN 400, CALL ME. 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, uncontrolled(250.62) 10/03/2016 Encounters Date Type Department Care Team Description 03/26/2025 Telephone Endocrinology - [address] [phone] Alysha Salgado PA 03/24/2025 7:45 AM EST Office Visit Endocrinology - [address] [phone] Alysha Salgado PA Diabetes 1.5, managed as type 2 ([facility] V24, [facility] V28) (Primary Dx); Type 2 diabetes mellitus with hyperglycemia, with long-term current use of insulin ([facility] V24, [facility] V28) 03/15/2025 1:00 PM EST Lab Draw Station - [address] Type 2 diabetes mellitus with hyperglycemia, with long-term current use of insulin ([facility] V24, [facility] V28); Hyperlipidemia, unspecified hyperlipidemia type 03/15/2025 Telephone Endocrinology - [address] [phone] Alysha Salgado PA from Last 3 Months Surgical History Surgery Date Site/Laterality Comments HYSTERECTOMY 04/22/2012 PROCEDURE: HISTORICAL HYSTERECTOMY TUBAL LIGATION PROCEDURE: HISTORICAL TUBAL LIGATION CHOLECYSTECTOMY 04/22/2009 PROCEDURE: HISTORICAL CHOLECYSTECTOMY OTHER SURGICAL HISTORY PROCEDURE: ---- OTHER ----; COMMENT: multiple kidney stone procedures Medical History Medical History Date Comments Diabetes 1.5, managed as typ e 2 (CMS/HCC V24, CMS/HCC V28) DX:Diabetes 1.5, managed as type 2 [...] on file Sexual Orientation Not on file Last Filed Vital Signs Vital Sign Reading Time Taken Comments Blood Pressure 139/70 03/24/2025 7:46 AM EST Pulse 80 03/24/2025 7:46 AM EST Temperature 36.6 C (97.8 F) 08/24/2024 9:36 AM EDT Respiratory Rate 13 03/24/2025 7:46 AM EST Oxygen Saturation 97% 05/29/2024 4:48 PM EST Inhaled Oxygen Concentration - - Weight 64 kg (141 lb) 03/24/2025 7:46 AM EST Height 152.4 cm (5') 03/24/2025 7:46 AM EST Body Mass Index 27.54 03/24/2025 7:46 AM EST Plan of Treatment Upcoming Encounters Date Type Department Care Team (Late st Contact Info) Description 06/30/2025 1:30 PM EDT Office Visit Endocrinology - [address] [phone] Alysha Salgado PA [address] [place] [address] Health Maintenance Due Date Last Done Comments [...] hyperglycemia, with long-term current use of insulin ([facility] V24, [facility] V28) LIPID PANEL WITH REFLEX TO DIRECT LDL Routine 03/15/2025 1:07 PM EST Type 2 diabetes mellitus with hyperglycemia, with long-term current use of insulin ([facility] V24, [facility] V28) Hyperlipidemia, unspecified hyperlipidemia type HEMOGLOBIN A1C Routine 03/15/2025 1:07 PM EST Type 2 diabetes mellitus with hyperglycemia, with long-term current use of insulin ([facility] V24, [facility] V28) COMPREHENSIVE METABOLIC PANEL Routine 07/02/2024 2:43 PM EDT Type 2 diabetes mellitus with hyperglycemia, with long-term current use of insulin ([facility] V24, [facility] V28) Hyperlipidemia, unspecified hyperlipidemia type Primary hypertension HEPATITIS C SCREENING Routine 03/03/2021 from Last 3 Months or Most Recently Relevant to Health Maintenance Results * Lipid panel with reflex to direct LDL (03/15/2025 1:07 PM EST) Cholesterol 159 0 - 200 mg/dL 03/15/2025 5:05 PM [facility] Triglycerides 134 0 - 150 mg/dL 03/15/2025 5:05 PM [facility] HDL 47 >=40 mg/dL 03/15/2025 5:05 PM [facility] LDL Calculated 85 0 - 100 mg/dL 03/15/2025 5:05 PM [facility] Comment:Estimated LDL Calcul ated using equation: Total cholesterol - HDL cholesterol - (Triglycerides/5) VLDL Cholesterol [place] 26.8 mg/dL 03/15/2025 5:05 PM EST [facility] Non HDL Chol. (LDL+VLDL) 112 <145 mg/dL 03/15/2025 5:05 PM [facility] Chol/HDL Ratio 3.4 0.0 - 4.4 03/15/2025 5:05 PM [facility] Blood Venous blood specimen / Unknown Venipuncture / Unknown 03/15/2025 1:07 PM EST 03/15/2025 1:07 PM EST us Alysha DIEZ LAB BLOOD ORDERABLES Final Resul t Performing Organization Address City/[facility]/ZIP Co de Phone Number [facility] [address] [place] [address], [place] [phone] * (ABNORMAL) Microalbumin creatinine urine ratio (03/15/2025 1:07 PM EST) Creatinine, Urine 44.0 mg/dL 03/15/2025 5:26 PM [facility] Microalb, Ur 117.0(H) 0.0 - 29.0 mg/L 03/15/2025 5:26 PM [facility] Microalb/Creat Ratio 266(H) <30 mg/g creat 03/15/2025 5:26 PM [facility] Urine Urine specimen obtained by clean catch procedure / Unknown Non-blood Collection / Unknown 03/15/2025 1:07 PM EST 03/15/2025 1:07 PM EST us Alysha DIEZ LAB URINE ORDERABLES Final Resul t Performing Organization Address [facility]/ZIP Co de Phone Number [facility] [address] [place] [address], [place] [phone] * (ABNORMAL) Hemoglobin A1c (03/15/2025 1:07 PM EST) [facility] Hemoglobin A1C 8.5(H) <6.5 % LAB CHEMISTRY METHOD 03/15/2025 8:11 PM EST [facility] Mean Bld Glu Estim. 197 mg/dL LAB CHEMISTRY METHOD 03/15/2025 8:11 PM EST [facility] Blood Venous blood specimen / Unknown Venipuncture / Unknown 03/15/2025 1:07 PM EST 03/15/2025 1:07 PM EST us Alysha DIEZ LAB BLOOD ORDERABLES Final Resul t [facility] [address] [place] [address], * (ABNORMAL) Comprehensive metabolic panel (07/02/2024 2:43 PM EDT) [facility] Sodium 139 133 - 145 mmol/L LAB CHEMISTRY METHOD 07/02/2024 5:36 PM [facility] Potassium 4.2 3.5 - 5.5 mmol/L LAB CHEMISTRY METHOD 07/02/2024 5:36 PM [facility] Chloride 104 96 - 110 mmol/L LAB CHEMISTRY METHOD 07/02/2024 5:36 PM [facility] CO2 28 21 - 32 mmol/L LAB CHEMISTRY METHOD 07/02/2024 5:[facility] Anion Gap 7 3 - 11 LAB CHEMISTRY METHOD 07/02/2024 5:36 PM [facility] Glucose 150(H) 70 - 100 mg/dL LAB CHEMISTRY METHOD 07/02/2024 5:36 PM [facility] BUN 16 5 - 25 mg/dL LAB CHEMISTRY METHOD 07/02/2024 5:36 PM [facility] Creatinine 0.55 0.50 - 1.10 mg/dL LAB CHEMISTRY METHOD 07/02/2024 5:36 PM EDT [facility] eGFR 104 >=60 mL/min/1. 73m2 LAB CHEMISTRY METHOD 07/02/2024 5:36 PM EDT [facility] Comment:Calculation based on the Chronic Kidney Disease Epidemiology Collaboration (CKD-EPI) equation refit without adjustment for race. BUN/Creatinine Ratio 29.1 LAB CHEMISTRY METHOD 07/02/2024 5:36 PM EDT [facility] Calcium 9.6 8.5 - 10.5 mg/dL LAB CHEMISTRY METHOD 07/02/2024 5:36 PM T [facility] AST (SGOT) 28 10 - 42 unit/L LAB CHEMISTRY METHOD 07/02/2024 5:36 PM [facility] ALT (SGPT) 40 10 - 60 unit/L LAB CHEMISTRY METHOD 07/02/2024 5:36 PM [facility] Alkaline Phosphatase 167(H) 42 - 121 unit/L LAB CHEMISTRY METHOD 07/02/2024 5:36 PM EDT [facility] Total Protein 7.5 6.0 - 8.0 g/dL LAB CHEMISTRY METHOD 07/02/2024 5:36 PM [facility] Albumin 3.8 3.2 - 5.0 g/dL LAB CHEMISTRY METHOD 07/02/2024 5:36 PM [facility] Total Bilirubin 0.3 0.0 - 1.4 mg/dL LAB CHEMISTRY METHOD 07/02/2024 5:36 PM EDT [facility] Blood Venous blood specimen / Unknown Venipuncture / Unknown 07/02/2024 2:43 PM EDT 07/02/2024 2:43 PM EDT us Alysha DIEZ LAB BLOOD ORDERABLES Final Resul t [facility] [address] [place] [address], * Hepatitis C Screening (03/03/2021) Hepatitis C Screening abstracted us Historical Provider HEALTH MAINTENANCE Final Result from Last 3 Months or Most Recently Relevant to Health Maintenance Insurance [facility] Care Teams Offset Label Rewinder Relationship Specialty Start Date End Date Tayla Pleitez NP [address] [facility] [place] [address] PCP - General 07/25/23
--- OUTSIDE RECORDS SUMMARY | 2025-04-08 11:22 | XMS_ITS | Encounter Summary ---
Author Organization [facility] Address [address] [place] [address] Care Team Providers Care Director Corporate Compliance Name Role Phone Tayla Pleitez MELVI Primary Care Provider [phone] Reason for Visit * Reason Onset Date Comments prior authorization 03/15/2025 Marcus honeycutt Encounter Details Date Type Department Care Team (Late st Contact Info) Description 03/15/2025 Telephone Endocrinology - [place] [address] [place] [phone] Alysha Salgado PA [address] [place] [address] Social History Tobacco Use Types Packs/Day Years [...] yes Who is calling? A pharmacist: Pharmacy: [facility] Pharmacist Name: Pharmacy . If not the patient or parent/guardian please check for authorization to share/verbal release. Why is the person calling? Prior authorization. Medications or glucose meter supplies. Please routeto prior authorization pool (p [phone]). Which supply is the concern? Humalog kwikpen [...] What Pharmacy did the fax come from: [facility] fax #: [phone] [employer] Information from fax: What Prescription Plan does the patient have? BIN/PCN if applicable: Cardholder ID: Person Code: Relationship Code: Help desk phone: documented in this encounter Plan of Treatment Upcoming Encounters Date Type Department Care Team (Late st Contact Info) Description 06/30/2025 1:30 PM EDT Office Visit Endocrinology - [place] [address] [place] [phone] Alysha Salgado PA [address] [place] [address] documented as of this encounter Visit Diagnoses Not on filedocumented in this encounter Care Teams Director Corporate Compliance Relationship Specialty Start Date End Date Tayla Pleitez NP [address] [facility] [place] [address] PCP - General 07/25/23 documented as of this encounter
== END 2025-04-08 10:54 | disposition home or self-care (01) ==
LOC: HO.HUSH 09:41
PROVIDERS: Visit Provider Urology
DX: N20.0 Calculus of kidney (principal); N39.0 Urinary tract infection, site not specified; Z13.9 Encounter for screening, unspecified; N20.9 Urinary calculus, unspecified
CPT/HCPCS: 52310; 99214

== ENCOUNTER → 2025-04-08 09:40 | Outpatient (BNVA) | payer OTHER, SELFPAY | PROVIDERS: Visit Provider Urology | DX: N20.0 Calculus of kidney (principal); N39.0 Urinary tract infection, site not specified | CPT/HCPCS: 52310; 81003; 99212 ==